=== PATIENT | female | born 1995 | race Caucasian/White ===

== ENCOUNTER 2016-10-07 03:59 | Emergency (ER) | payer MEDICAID ==
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
== END 2016-10-07 04:45 | disposition home or self-care (01) ==
LOC: ER 03:59
DX: S90.31XA Contusion of right foot, initial encounter (principal); W22.8XXA Striking against or struck by other objects, initial encounter
CPT/HCPCS: 99283

== ENCOUNTER 2016-12-15 11:15 | Emergency (ER) | payer MEDICAID ==
--- NOTE | 2016-12-15 11:59 | Emergency Department Record ---
History of Present Illness - General Chief complaint: Extremity Problem Stated complaint: NEEDLE BROKE IN LEG Time Seen by Provider: 12/15/16 11:49 Source: Patient Mode of Arrival: Wheelchair - History of Present Illness Initial comments: The patient was giving herself her daily insulin when the needle malfunctioned and stuck in her skin. She could not pull it out of her skin, so she cut it off to come here. No other complaints. Onset/Timin -: Hour(s) Location: Right, Thigh History of Same: Yes Improves with: Nothing Worsens with: Nothing Associated Symptoms: Denies other symptoms - Related Data Home Medications Medication Instructions Recorded Confirmed Last Taken Insulin Aspart [Novolog Flexpen] 7 unit SC WMEALS 04/21/16 12/15/16 10/06/16 Insulin Glargine,Hum.rec.anlog 20 unit SQ DAILY pen.injctr 06/08/16 12/15/16 [Lantus Solostar] Previous Rx's Medication Instructions Recorded Hydrocodone/Acetaminophen [Montrose 1 tab PO Q6H PRN #3 tab 12/15/16 5mg/325mg] Allergies Allergy/AdvReac Type Severity Reaction Status Date / Time pineapple Allergy rash Unverified 06/16/16 09:32 Travel Screening - Travel/Exposure Within Last 30 Days Have you traveled within the last 30 days?: No Review of Systems Reviewed: No additional complaints except as noted below Constitutional: Reports: As per HPI. Denies: Chills, Fever, Malaise, Night sweats, Weakness, Weight change Eyes: Reports: As per HPI. Denies: Eye discharge, Eye pain, Photophobia, Vision change ENT: Reports: As per HPI. Denies: Congestion, Dental pain, Ear pain, Epistaxis , Hearing loss, Throat pain Respiratory: Reports: As per HPI. Denies: Cough, Dyspnea, Hemoptysis, Stridor, Wheezes Cardiovascular: Reports: As per HPI. Denies: Arrhythmia, Chest pain, Dyspnea on exertion, Edema, Murmurs, Orthopnea, Palpitations, Paroxysmal nocturnal dyspnea, Rheumatic Fever, Syncope Endocrine: Reports: As per HPI. Denies: Fatigue, Heat or cold intolerance, Polydipsia, Polyuria Gastrointestinal: Reports: As per HPI. Denies: Abdominal pain, Constipation, Diarrhea, Hematemesis, Hematochezia, Melena, Nausea, Vomiting Genitourinary: Reports: As per HPI. Denies: Abnormal menses, Discharge, Dyspareunia, Dysuria, Frequency, Hematuria, Incontinence, Retention, Urgency Musculoskeletal: Reports: As per HPI. Denies: Arthralgia, Back pain, Gout, Joint swelling, Myalgia, Neck pain Skin: Reports: As per HPI. Denies: Bruising, Change in color, Change in hair/ nails, Lesions, Pruritus, Rash Neurological: Reports: As per HPI. Denies: Abnormal gait, Confusion, Headache, Numbness, Paresthesias, Seizure, Tingling, Tremors, Vertigo, Weakness Psychiatric: Reports: As per HPI. Denies: Anxiety, Auditory hallucinations, Depression, Homicidal thoughts, Suicidal thoughts, Visual hallucinations Hematological/Lymphatic: Reports: As per HPI. Denies: Anemia, Blood Clots, Easy bleeding, Easy bruising, Swollen glands Past Medical History - SOCIAL HISTORY Smoking Status: Never smoker Alcohol Use: None Drug Use: None - RESPIRATORY Hx Respiratory Disorders: No - CARDIOVASCULAR Hx Cardio Disorders: No - NEURO Hx Neuro Disorders: No - GI Hx GI Disorders: No - Hx Genitourinary Disorders: No - ENDOCRINE Hx Endocrine Disorders: Yes Hx Diabetes: Yes (DM1) - MUSCULOSKELETAL Hx Musculoskeletal Disorders: No - PSYCH Hx Psych Problems: Yes Hx Anxiety: Yes - HEMATOLOGY/ONCOLOGY Hx Hematology/Oncology Disorders: No Family Medical History Any Significant Family History?: Yes Hx Cancer: Grandparents Hx Diabetes: Father *Diabetes Comment: Type 1 Hx Heart Disease: Mother, Grandparents Hx HTN: Mother, Grandparents Physical Exam - General General Appearance: Alert, Oriented x3, Cooperative, No acute distress - Head Head exam: Normal inspection - Eye Eye exam: Normal appearance, PERRL Pupils: Normal accommodation - ENT ENT exam: Normal exam, Mucous membranes moist, Normal external ear exam, Normal orophraynx, TM's normal bilaterally Ear exam: Normal external inspection. negative: External canal tenderness Nasal Exam: Normal inspection. negative: Discharge, Sinus tenderness Mouth exam: Normal external inspection, Tongue normal Teeth exam: Normal inspection. negative: Dental caries Throat exam: Normal inspection. negative: Tonsillar erythema, Tonsillar exudate - Neck Neck exam: Normal inspection, Full ROM. negative: Tenderness - Respiratory Respiratory exam: Normal lung sounds bilaterally. negative: Respiratory distress - Cardiovascular Cardiovascular Exam: Regular rate, Normal rhythm, Normal heart sounds - GI/Abdominal GI/Abdominal exam: Soft, Normal bowel sounds. negative: Tenderness - Rectal Rectal exam: Deferred - exam: Deferred - Extremities Extremities exam: Normal inspection, Full ROM, Normal capillary refill, Other ( anteror mid right thigh with puncture site visible and marked for xray.). negative: Tenderness - Back Back exam: Reports: Normal inspection, Full ROM. Denies: Muscle spasm, Rash noted, Tenderness - Neurological Neurological exam: Alert, Normal gait, Oriented X3, Reflexes normal - Psychiatric Psychiatric exam: Normal affect, Normal mood - Skin Skin exam: Dry, Intact, Normal color, Warm Course Vital Signs 12/15/16 11:24 Temperature 98.4 F Pulse Rate 75 Respiratory 18 Rate Blood Pressure 111/61 Pulse Ox 99 - Reevaluation(s) Reevaluation #1: PROCEDURE: Sterile technique, scrubbed, draped, prepped area on right anterior thigh, 1/2 cc lidocaine with epi locally around wound, opened puncture site to about 1/2 cm size and depth. Probed wound with magnetized tweezers, metal object felt but unable to removed after 15 minutes of repeated attempts. Patient tolerated well. Bleeding controlled 12/15/16 14:34 Reevaluation #2: Dr. Solares paged. Spoke with him scrubbed in to surgery. He states he will remove it under fluoroscopy at [facility] tomorrow and to call his office to get it scheduled. Mom and patient aware and agree. 12/15/16 14:36 12/15/16 14:56 Medical Decision Making - Management Options MDM Management: Additional Work-up Planned (e.g. ADM/Transfer/OP Study) (Dr. Solares consult to remove needle foreign body) - Data Complexity MDM Data: X-Ray Ordered and/or Reviewed (Soft tissue right thigh shows tiny needle foreign body beneath skin surface.) Disposition Disposition: Discharge Clinical Impression: Retained foreign body Disposition: Home, Self-Care Condition: (1) Good Instructions: Soft Tissue Foreign Body (ED) Additional Instructions: Dr. Solares to remove foreign body in your thigh tomorrow at [facility] under fluoroscopy. Keep wound covered. Montrose 3 pills to take 1 every 6 hours if needed, otherwise tylenol or ibuprofen as directed as needed for pain. Prescriptions: Hydrocodone/Acetaminophen [Montrose 5mg/325mg] 1 tab PO Q6H PRN #3 tab PRN Reason: Pain - General
== END 2016-12-15 15:05 | disposition home or self-care (01) ==
LOC: ER 11:15
DX: S70.351A Superficial foreign body, right thigh, initial encounter (principal); E10.9 Type 1 diabetes mellitus without complications; Z79.4 Long term (current) use of insulin; W46.0XXA Contact with hypodermic needle, initial encounter
CPT/HCPCS: 10120; 99283; 99284

== ENCOUNTER 2018-02-13 00:47 | Emergency (ER) | payer MEDICAID ==
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
== END 2018-02-13 03:07 | disposition home or self-care (01) ==
LOC: ER 00:47
DX: S16.1XXA Strain of muscle, fascia and tendon at neck level, initial encounter (principal); R51 Headache; E11.9 Type 2 diabetes mellitus without complications; Z79.4 Long term (current) use of insulin; Z87.891 Personal history of nicotine dependence; V43.61XA Car passenger injured in collision with sport utility vehicle in traffic accident, initial encounter; Y92.410 Unspecified street and highway as the place of occurrence of the external cause
CPT/HCPCS: 70450; 72125; 99283; 99284

== ENCOUNTER 2018-05-09 13:23 | Inpatient (IN) | payer MEDICAID ==
[2018-05-09] MEDS ORDERED: 0.9 % SODIUM CHLORIDE 1,000 ML BAG IV ONE (13:52)
[2018-05-09] MEDS ORDERED: ONDANSETRON HCL IV 4 MG/2 ML VIAL IVP ONE (14:00)
--- NOTE | 2018-05-09 14:00 | Emergency Department Record ---
History of Present Illness - General Chief complaint: Weakness Stated complaint: NOT EATING,WEAK,HARD TO WALK, Time Seen by Provider: 05/09/18 13:26 Source: Patient Mode of Arrival: Wheelchair Limitations: No limitations - History of Present Illness Initial comments: 23 yo female presents not feeling well for about 3-4 days. She has chronic concerns about anxiety and her health. She states she does constantly think about things that could be wrong with her. She then feels overwhelmed to deal with the problems. She has had months of decreased appetite. Months of frequent vaginal bleeding that she is too upset to deal with possible causes. She is worried about her liver and kidneys and whether the kidneys are working. She has not seen her PCP is angelito. She did see her petroleum blending plant operator who ordered routine labs but she has not gotten them yet. She does not work. She did see Miryam Luciano of [facility] once but she has not returned for follow up appointments. PCP is Allie Amaya. Complaint: Generalized weakness Onset/Timin -: Days(s) Location: Generalized Severity: Moderate Quality: Other Improves with: None Worsens with: None Associated Symptoms: Confusion, Nausea/vomiting, Other - [place] Coma Scale Eye Response: (4) Open spontaneously Motor Response: (6) Obeys commands Verbal Response: (5) Oriented Nathan Total: 15 - Related Data Allergies Allergy/AdvReac Type Severity Reaction Status Date / Time pineapple Allergy rash Verified 05/09/18 13:44 Travel Screening - Travel/Exposure Within Last 30 Days Have you traveled within the last 30 days?: No - Travel/Exposure Within Last Year Have you traveled outside the [place] in the last year?: No - Additonal Travel Details Have you been exposed to anyone with a communicable illness?: No - Travel Symptoms Symptom Screening: None Review of Systems Constitutional: Reports: Malaise, Weakness. Denies: Chills, Fever Eyes: Denies: Eye discharge, Eye pain, Vision change ENT: Denies: Congestion, Throat pain Respiratory: Denies: Cough, Dyspnea Cardiovascular: Denies: Chest pain, Dyspnea on exertion, Edema, Palpitations, Syncope Endocrine: Reports: Fatigue Gastrointestinal: Reports: Nausea. Denies: Abdominal pain, Constipation, Diarrhea, Hematemesis, Hematochezia, Melena, Vomiting Genitourinary: Denies: Dysuria Musculoskeletal: Denies: Arthralgia, Back pain, Joint swelling, Myalgia Skin: Denies: Bruising, Change in color, Rash Neurological: Reports: Weakness. Denies: Confusion, Headache, Numbness, Tingling, Tremors, Vertigo Psychiatric: Reports: Anxiety Hematological/Lymphatic: Denies: Blood Clots, Easy bleeding, Easy bruising, Swollen glands Past Medical History - SOCIAL HISTORY Smoking Status: Former smoker - RESPIRATORY Hx Respiratory Disorders: No - CARDIOVASCULAR Hx Cardio Disorders: Yes Hx Palpitations: Yes - NEURO Hx Neuro Disorders: No - GI Hx GI Disorders: No - Hx Genitourinary Disorders: No - ENDOCRINE Hx Endocrine Disorders: Yes Hx Diabetes: Yes (DM1) - MUSCULOSKELETAL Hx Musculoskeletal Disorders: No - PSYCH Hx Psych Problems: Yes Hx Anxiety: Yes - HEMATOLOGY/ONCOLOGY Hx Hematology/Oncology Disorders: No Family Medical History Any Significant Family History?: No Hx Cancer: Grandparents Hx Diabetes: Father *Diabetes Comment: Type 1 Hx Heart Disease: Mother, Grandparents Hx HTN: Mother, Grandparents Physical Exam - General General Appearance: Alert, Oriented x3, Cooperative, No acute distress Limitations: No limitations - Head Head exam: Normal inspection - Eye Eye exam: Normal appearance, PERRL. negative: Conjunctival injection, Scleral icterus - ENT ENT exam: Normal exam, Mucous membranes moist, Normal orophraynx. negative: Mucous membranes dry Ear exam: Normal external inspection Nasal Exam: Normal inspection Mouth exam: Normal external inspection - Neck Neck exam: Normal inspection, Full ROM. negative: Lymphadenopathy, Tenderness - Respiratory Respiratory exam: Normal lung sounds bilaterally. negative: Respiratory distress - Cardiovascular Cardiovascular Exam: Regular rate, Normal rhythm, Normal heart sounds - GI/Abdominal GI/Abdominal exam: Soft. negative: Tenderness - Rectal Rectal exam: Deferred - exam: Deferred - Extremities Extremities exam: Normal inspection. negative: Full ROM, Pedal edema, Tenderness - Back Back exam: Denies: CVA tenderness (R), CVA tenderness (L) - Neurological Neurological exam: Alert, Oriented X3. negative: CN II-XII intact, Motor sensory deficit - Psychiatric Psychiatric exam: Anxious. negative: Agitated, Flat affect, Homicidal ideation , Manic, Suicidal ideation - Skin Skin exam: Dry, Intact, Normal color, Warm Course Vital Signs 05/09/18 13:36 Temperature 97.5 F L Pulse Rate 102 H Respiratory 20 Rate Blood Pressure 106/67 Pulse Ox 100 - Reevaluation(s) Reevaluation #1: The EMR was reviewed The patient has seen Miryam Luciano and Allie Amaya in the past Miryam and Allie were both contacted. The symptoms the patient presents with are well known to them. The symptoms do extend back many months. The patient has not been willing to go to appointments for either provider. The patient states she "doesn't want to deal with it all". She is afraid of what it could be causing her to feel this way. 05/09/18 14:16 05/09/18 15:12 The labs were reviewed The patient has ketosis with positive acetone, VpH 7.21, HCO3 of 12 and AG of 33. Glucose is 109 and 135. Likely a starvation ketosis based on history. Her weight today is 146 pounds down from prior of about 160 beginning of the year. I SW the patient's PCP Allie Amaya and Dr Zarco of the admitting service to admit, consult behavioral health, nutrition, hydrate with dextrose added and recheck labs. One MVI with Thiamine ordered as well. 05/09/18 15:22 Vitals stable for admission 05/09/18 15:51 HCG is negative TSh is 0.5 Free T4 is 1.17 (normal) Medical Decision Making - Lab Data Result diagrams: 05/09/18 14:20 05/09/18 14:20 Disposition Disposition: Admit Clinical Impression: Anxiety, Dehydration, Ketosis Disposition: Still a Patient at [facility] Decision to Admit: Admit from ER Decision to Admit Date: 05/09/18 Decision to Admit Time: 15:16 Condition: (2) Stable Time of Disposition: 15:16 Quality - Quality Measures Quality Measures: N/A - Blood Pressure Screening Does Patient Have Any of the Following: No Blood Pressure Classification: Normal BP Reading Systolic Measurement: 97 Diastolic Measurement: 55 Screening for High Blood Pressure: < Normal BP, F/U Not Required > [[id number]]
[2018-05-09 14:31] LABS: HEMATOCRIT 43.7 % (35.0-47.0); HEMOGLOBIN 14.3 gm/dl (11.6-16.0); MEAN CELL VOLUME 86.5 fl (81-97); MEAN CORPUSCULAR HEMOGLOBIN 28.3 pg (27-33); MEAN CORPUSCULAR HGB CONC 32.7 g/dl (32-36); MEAN PLATELET VOLUME 11.3 fl (7.4-10.4); PLATELET COUNT 364 K/uL (130-400); RED BLOOD COUNT 5.05 M/uL (3.80-5.40); RED CELL DISTRIBUTION WIDTH 13.1 % (11.5-14.5); WHITE BLOOD COUNT W/O DIFF 9.9 K/uL (4.2-12.2)
[2018-05-09 14:44] LABS: BLOOD UREA NITROGEN 15 mg/dL (6-20); CREATININE 0.8 mg/dL (0.5-0.9); EST GLOMERULAR FILTRATION RATE > 60 mL/min
[2018-05-09 14:45] LABS: TOTAL PROTEIN 7.9 g/dL (6.6-8.7)
[2018-05-09 14:47] LABS: GLUCOSE,RANDOM 135 mg/dL (74-109)
[2018-05-09 14:50] LABS: ALB/GLOB RATIO 1.5 (1.1-1.8); ALBUMIN 4.8 g/dL (4.0-5.0); ALKALINE PHOSPHATASE 66 U/L (35-104); ALT/SGPT 6 U/L (<33); AST/SGOT 12 U/L (10.0-35.0)
[2018-05-09 14:50] LABS: URINE APPEARANCE CLEAR; URINE BILIRUBIN NEGATIVE (NEGATIVE); URINE BLOOD LARGE (NEGATIVE); URINE COLOR YELLOW; URINE GLUCOSE (UA) NEGATIVE (NEGATIVE); URINE LEUKOCYTE ESTERASE NEGATIVE (NEGATIVE); URINE NITRITE NEGATIVE (NEGATIVE); URINE UROBILINOGEN 0.2 E.U./dL (0.20 - 1.00)
[2018-05-09 14:52] LABS: ACETONE,SERUM POSITIVE (NEGATIVE)
[2018-05-09 14:54] LABS: URINE KETONE 80 mg/dL (NEGATIVE)
[2018-05-09 15:00] LABS: THYROID STIMULATING HORMONE 0.53 uIU/mL (0.270-4.20)
[2018-05-09 15:00] LABS: URINE BACTERIA 2+; URINE EPITHELIAL CELLS >50 (FEW); URINE HYALINE CAST 0 - 5 /lpf; URINE RBC 36 - 50 (NONE SEEN); URINE WBC 0 - 2 (0-2/hpf)
[2018-05-09] MEDS ORDERED: DEXTROSE 5 % AND 0.9 % NACL 1,000 ML IV PRN ×2 (15:07→16:20)
[2018-05-09] MEDS ORDERED: MVI, ADULT NO.4 WITH VIT K 10 ML, THIAMINE HCL IV 100 MG in 0.9 % SODIUM CHLORIDE 1000M... IV SCH ×3 (15:15)
[2018-05-09] MEDS ORDERED: ACETAMINOPHEN 325 MG TAB PO PRN (16:20)
[2018-05-09] MEDS: NOVOLOG FLEXPEN (INSULIN ASPART) 100 UNITS/ML SQ SCH (18:16)
[2018-05-09] MEDS ORDERED: NOVOLOG FLEXPEN (INSULIN ASPART) 100 UNITS/ML SQ ONE (23:15)
[2018-05-09] MEDS: 0.9 % SODIUM CHLORIDE 1000ML 1,000 ML IV PRN (23:32)
[2018-05-10 07:01] LABS: BLOOD UREA NITROGEN 5 mg/dL (6-20); CREATININE 0.6 mg/dL (0.5-0.9); EST GLOMERULAR FILTRATION RATE > 60 mL/min; GLUCOSE,RANDOM 243 mg/dL (74-109)
[2018-05-10 07:32] LABS: ACETONE,SERUM POSITIVE (NEGATIVE)
[2018-05-10] MEDS: 0.9 % SODIUM CHLORIDE 1000ML 1,000 ML IV PRN ×2 (08:15→16:47)
[2018-05-10] MEDS: NOVOLOG FLEXPEN (INSULIN ASPART) 100 UNITS/ML SQ SCH ×3 (08:16→17:34)
--- NOTE | 2018-05-10 09:44 | Physician Progress Note ---
Subjective - Date Date of Physician Progress Note: 05/10/18 - Subjective Subjective Comment: 23 year old female presented to ED yesterday with complaints of weakness after not eating for 4 days. Patient has type 1 diabetes and an extensive history of anxiety. Patient states she was not eating due to worries about doing something wrong and wanting to eat the right things. Patient was admitted with starvation acidosis, diabetes type 1, and anxiety. Lab work completed this morning reveals continuing acidosis. Venous pH 7.24, anion gap 22, blood glucose 243, and positive acetone. Patient has started eating meals today, is covered with Novolog sliding scale and 5 units with eat meal. Patient continues to receive 0.9% NS @125ml/hr. Dive Superintendent and behavioral health have been consulted and plan to meet with patient today. Will restart Basaglar 24 units qhs today. Patient reports weakness has been improving. Voiced frustration over insulin dosing, as it is not consistent with her home regimen. Will continue to cover patient with sliding scale Novolog and recheck labs in the morning to see if acidosis has resolved. Mom at bedside, mom and patient agreeable to plan. Objective - Multidiciplinary Team Multidiciplinary Team: Social Work - Vital Signs Vital Signs: Vital Signs - Last 24 Hrs Temp Pulse Pulse Resp BP BP Pulse Ox 05/10/18 07:55 98.5 F 95 H 18 90/42 100 05/10/18 00:00 98.2 F 120 H 18 118/53 100 05/09/18 21:00 16 05/09/18 18:35 94 H 18 05/09/18 16:20 94 H 18 111/56 100 05/09/18 16:12 97.5 F L 60 20 97/55 100 05/09/18 13:36 97.5 F L 102 H 20 106/67 100 - General General Appearance: Alert, Oriented x3, Cooperative, No acute distress Limitations: No limitations - Head Head exam: Normal inspection - Eye Eye exam: Normal appearance, PERRL. negative: Conjunctival injection, Scleral icterus - ENT ENT exam: Normal exam, Mucous membranes moist, Normal orophraynx. negative: Mucous membranes dry Ear exam: Normal external inspection Nasal Exam: Normal inspection Mouth exam: Normal external inspection - Neck Neck exam: Normal inspection, Full ROM. negative: Lymphadenopathy, Tenderness - Respiratory Respiratory exam: Normal lung sounds bilaterally. negative: Respiratory distress - Cardiovascular Cardiovascular Exam: Regular rate, Normal rhythm, Normal heart sounds - GI/Abdominal GI/Abdominal exam: Soft, Normal bowel sounds. negative: Tenderness - Rectal Rectal exam: Deferred - exam: Deferred - Extremities Extremities exam: Normal inspection. negative: Full ROM, Pedal edema, Tenderness - Back Back exam: Denies: CVA tenderness (R), CVA tenderness (L) - Neurological Neurological exam: Alert, Oriented X3. negative: CN II-XII intact, Motor sensory deficit - Psychiatric Psychiatric exam: Anxious. negative: Agitated, Flat affect, Homicidal ideation , Manic, Suicidal ideation - Skin Skin exam: Dry, Intact, Normal color, Warm Assessment and Plan - Assessment and Plan (1) Acidosis Current Visit: Yes Status: Acute Base Code: E87.2 - ACIDOSIS Comment: 05/10: Patient presented to ED yesterday with acidosis secondary to starvation x 4 days with a history of type 1 diabetes. Patient stated she was not eating due to anxiety, worrying about eating the right things, and not wanting to make her diabetes worse. -Venous pH today 7.24, anion gap 22, glucose 243, acetone positive, urine positive for ketones -Will continue 0.9% NS @ 125ml/hr -Patient encouraged to resume normal diet -Novolog 5 units TID with scale coverage at meals -Will restart Basaglar 24 units qhs today -Dive Superintendent consult -Will recheck labs tomorrow (2) Type 1 diabetes Current Visit: Yes Status: Acute Base Code: E10.9 - TYPE 1 DIABETES MELLITUS WITHOUT COMPLICATIONS Comment: 05/10/18: History of type 1 diabetes since age 12. Patient uses Novolog and Basaglar at home. Is managed by an brick and block mason at [facility]. Patient reports home readings of "okay" recently. -Accucheck ac, hs -Novolog 5 units TID with scale coverage -Basaglar 24 units qhs -Normal saline 0.9% @ 125ml/hr -Dive Superintendent consult -Encouraged to resume normal diet -Will recheck labs in the morning (3) Anxiety Current Visit: Yes Status: Acute Base Code: F41.9 - ANXIETY DISORDER, UNSPECIFIED Comment: 05/10/18: Patient admits history of anxiety, has seen services at [facility] in the past with poor attendance. Patient denies any current medications for anxiety - has been consulted, they are planning to meet with patient today to re- establish care (4) DVT prophylaxis Current Visit: Yes Status: Acute Base Code: [id number] - Comment: 05/10/18: moderate risk due to hospitalization and decreased mobility -Lovenox 40mg SQ qd (5) Full code status Current Visit: Yes Status: Acute Base Code: Z78.9 - OTHER SPECIFIED HEALTH STATUS Comment: 05/10/18: Patient is a full code this admission Results - Labs Result Diagrams: 05/09/18 14:20 05/10/18 06:35 Labs Last 24 Hours: Laboratory Results - last 24 hr 05/09/18 05/09/18 05/09/18 13:42 14:20 14:20 WBC 9.9 RBC 5.05 Hgb 14.3 Hct 43.7 MCV 86.5 MCH 28.3 MCHC 32.7 RDW 13.1 Plt Count 364 MPV 11.3 H Neutrophils % 89.0 H Eosinophils % Not Reportable Basophils % Not Reportable Lymphocytes 8.0 L Monocytes 3.0 VBG pH 7.21 L Sodium 137 Potassium 4.1 Chloride 92 L Carbon Dioxide 12.0 L Anion Gap 33.0 H BUN 15 Creatinine 0.8 Estimated GFR > 60 POC Glucose 109 Random Glucose 135 H Calcium 9.1 Magnesium 1.7 Total Bilirubin 0.90 AST 12 ALT 6 Alkaline Phosphatase 66 Total Protein 7.9 Albumin 4.8 Globulin 3.1 Albumin/Globulin Ratio 1.5 Triglycerides Cholesterol LDL Cholesterol Measurd VLDL Cholesterol HDL Cholesterol TSH Free T4 Serum HCG, Qual Urine Color Urine Appearance Urine pH Ur Specific [place] Urine Protein Urine Glucose (UA) Urine Ketones Urine Blood Urine Nitrite Urine Bilirubin Urine Urobilinogen Ur Leukocyte Esterase Urine RBC Urine WBC Ur Epithelial Cells Urine Bacteria Hyaline Casts Acetone, Qual Positive 05/09/18 05/09/18 05/09/18 14:20 14:20 14:48 WBC RBC Hgb Hct MCV MCH MCHC RDW Plt Count MPV Neutrophils % Eosinophils % Basophils % Lymphocytes Monocytes VBG pH Sodium Potassium Chloride Carbon Dioxide Anion Gap BUN Creatinine Estimated GFR POC Glucose Random Glucose Calcium Magnesium Total Bilirubin AST ALT Alkaline Phosphatase Total Protein Albumin Globulin Albumin/Globulin Ratio Triglycerides 99 Cholesterol 167 LDL Cholesterol Measurd 89.0 VLDL Cholesterol 19 HDL Cholesterol 63 H TSH 0.53 Free T4 1.17 Serum HCG, Qual Negative Urine Color Yellow Urine Appearance Clear Urine pH 6.0 Ur Specific L[place] >= 1.030 Urine Protein 100 mg/dl H Urine Glucose (UA) Negative Urine Ketones 80 mg/dl H Urine Blood Large H Urine Nitrite Negative Urine Bilirubin Negative Urine Urobilinogen 0.2 Ur Leukocyte Esterase Negative Urine RBC 36 - 50 Urine WBC 0 - 2 Ur Epithelial Cells >50 Urine Bacteria 2+ Hyaline Casts 0 - 5 Acetone, Qual 05/09/18 05/10/18 05/10/18 22:32 02:16 06:35 WBC RBC Hgb Hct MCV MCH MCHC RDW Plt Count MPV Neutrophils % Eosinophils % Basophils % Lymphocytes Monocytes VBG pH 7.24 L Sodium 137 Potassium 3.8 Chloride 102 Carbon Dioxide 13.0 L Anion Gap 22.0 H BUN 5 L Creatinine 0.6 Estimated GFR > 60 POC Glucose 391 H 346 H Random Glucose 243 H Calcium 8.1 L Magnesium Total Bilirubin AST ALT Alkaline Phosphatase Total Protein Albumin Globulin Albumin/Globulin Ratio Triglycerides Cholesterol LDL Cholesterol Measurd VLDL Cholesterol HDL Cholesterol TSH Free T4 Serum HCG, Qual Urine Color Urine Appearance Urine pH Ur Specific Largo Urine Protein Urine Glucose (UA) Urine Ketones Urine Blood Urine Nitrite Urine Bilirubin Urine Urobilinogen Ur Leukocyte Esterase Urine RBC Urine WBC Ur Epithelial Cells Urine Bacteria Hyaline Casts Acetone, Qual Positive DVT/PE Assessment - Risk for VTE Risk for VTE: Yes Risk Level: Low Risk Assessment Date: 05/09/18 Risk Assessment Time: 12:00 VTE Orders Placed or Will Be Placed: Yes - Active Medicaitons Current Medications: Current Medications Acetaminophen (Tylenol 325mg) 650 mg PO Q6H PRN PRN Reason: PAIN - MILD(1-4)/FEVER Enoxaparin Sodium (Lovenox) 40 mg SQ DAILY [facility] Dextrose/Sodium Chloride () 1,000 mls @ 125 mls/hr IV .Q8H PRN PRN Reason: LARGE VOLUME IV Sodium Chloride () 1,000 mls @ 125 mls/hr IV .Q8H PRN PRN Reason: LARGE VOLUME IV Last Admin: 05/10/18 08:15 Dose: 125 mls/hr Insulin Aspart (Novolog Flexpen) 5 unit SQ TIDINS TAVON; Protocol Last Admin: 05/10/18 08:16 Dose: 10 unit AMI Plan - Labs Result Diagrams: 05/09/18 14:20 05/10/18 06:35
[2018-05-10] MEDS ORDERED: ENOXAPARIN 40 MG/0.4 ML SYR SQ SCH (10:00)
--- NOTE | 2018-05-10 12:30 | History and Physical Report ---
DATE: 05/09/2018 CHIEF COMPLAINT: Not eating or drinking, diabetic, weakness. HISTORY OF PRESENT ILLNESS: This 23-year-old female states that she was not eating or drinking for the last 3-4 days. She could not give me a real reason why. She might have an eating disorder. She is weak. She is also very anxious. She came into the ER for evaluation with her mother. She has been a diabetic for at least 6-8 years. She denies vomiting or diarrhea. She sees the issue clerk at [facility], endocrinology Dr. Manzanares. She also sees TARP REPAIRER Fe Sosa but is pretty noncompliant according to Dr. Lincoln who admitted her through the emergency department. He gave her IV fluids and labs were unremarkable except the venous pH was 7.2. Acetone was positive at 1 to 8. Her train of thought was difficult to follow. It was hard to listen to her history. PAST MEDICAL HISTORY: Diabetes mellitus type 1, anxiety, eating disorder. PAST SURGICAL HISTORY: Injury to the face with a dog bite requiring surgery and right upper thigh removal of an insulin needle in her thigh. MEDICATIONS: On admission: 1. She was very difficult to get her diabetic insulin medications from her. It sounds like she uses 22 units of Basaglar and she uses NovoLog as her short- acting insulin. She has a very elaborate carbohydrate counting scale and it is very confusing. To simplify things, I recommended that we go with 5 units of insulin NovoLog per meal and then 1 unit for every 20 units over 140. She says that is what they wrote down at the diabetic clinic after I said that. I am not sure exactly what she is taking but that is what we will start with. We will hold the Basaglar until she is eating. We are going to give her a tray tonight at dinnertime to see how she does. 2. Vitamin D2, 1 capsule a week. ALLERGIES: PINEAPPLE. FAMILY/PSYCHOSOCIAL HISTORY: Unremarkable. REVIEW OF SYSTEMS: HEENT: No upper respiratory infection symptoms, cough, cold, or congestion. Cardiovascular: No chest pain, palpitations, or arrhythmia. Respiratory: No cough, cold, or congestion. Gastrointestinal: She is not vomiting. She is not eating. No diarrhea. Genitourinary: No dysuria, hematuria, frequency, or burning on urination. Musculoskeletal: Moving all 4 extremities. No joint abnormalities. Neurological: She has anxiety disorder and possible eating disorder. No paralysis, paresthesias, balance problems. TRANSFER MACHINE OPERATOR: Unremarkable. 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 Endocrine: She has diabetes type 1. Integument: No rash, ulcers, change in moles, or yellow skin. PHYSICAL EXAMINATION: VITALS: Height 5 feet 3 inches, weight 153 pounds. Temperature 97.5, blood pressure 111/56, pulse 94, respiratory rate 18, pulse ox 100% on room air. HEENT: Pupils are equal, round, and reactive to light and accommodation. Extraocular muscles are intact. Throat is clear. That is still dry but not as bad as what the mom said. She is looking better. Nose is clear. Tympanic membranes are ibarra. Skin color is looking better. NECK: Supple. No jugular venous distention. No hepatojugular reflux. No carotid bruits. Thyroid is smooth. CARDIOVASCULAR: Regular rate and rhythm without murmurs, clicks, rubs, or gallops. RESPIRATORY: Clear to auscultation and percussion. ABDOMEN: Soft, nontender. No hepatosplenomegaly, no masses, no tenderness. Bowel sounds are active. EXTREMITIES: No pitting edema. No cyanosis, no clubbing. Full range of motion. Peripheral pulses are good. BREASTS: Exam deferred. GYNECOLOGICAL: Exam deferred. RECTAL: Exam deferred. NEUROLOGIC: Cranial nerves II-XII intact. No gross defects. Sensation normal, strength normal. Deep tendon reflexes equal bilaterally with Babinski negative. MENTAL STATUS: Alert and oriented x3. IMPRESSION: 1. Starvation acidosis. 2. Diabetes mellitus type 1. 3. Anxiety. 4. Eating disorder. INPATIENT CERTIFICATION: Admit to inpatient care. Based on my medical assessment , after consideration of patient's risk factors, age, comorbidities, and patient 's presenting symptoms and acuity, I expect that this patient will remain in the hospital greater than or equal to 2 midnights and that the services needed warrant inpatient care because of diabetes mellitus type 1, ketoacidosis, and an eating disorder. Estimated length of stay is 3 days. The patient may reasonably be expected to be discharged or transferred to a hospital within 96 hours after admission to [facility]. I certify that my determination is in accordance with my understanding of Medicare requirements for reasonable and necessary inpatient services. KAIN
[2018-05-10] MEDS ORDERED: BASAGLAR INSULIN MC SCH (22:00)
[2018-05-11] MEDS: 0.9 % SODIUM CHLORIDE 1000ML 1,000 ML IV PRN (02:00)
[2018-05-11 07:19] LABS: ALB/GLOB RATIO 1.6 (1.1-1.8); ALBUMIN 3.4 g/dL (4.0-5.0); ALKALINE PHOSPHATASE 46 U/L (35-104); ALT/SGPT < 5 U/L (<33); AST/SGOT 8 U/L (10.0-35.0); BLOOD UREA NITROGEN 2 mg/dL (6-20); CREATININE 0.5 mg/dL (0.5-0.9); EST GLOMERULAR FILTRATION RATE > 60 mL/min; GLUCOSE,RANDOM 81 mg/dL (74-109); TOTAL PROTEIN 5.5 g/dL (6.6-8.7)
[2018-05-11] MEDS ORDERED: POTASSIUM CHLORIDE 20 MEQ TABLET PO ONE (08:15)
[2018-05-11] MEDS: NOVOLOG FLEXPEN (INSULIN ASPART) 100 UNITS/ML SQ SCH ×2 (08:33→11:57)
--- NOTE | 2018-05-11 12:17 | Discharge Summary ---
Providers Discharge Summary Date: 05/11/18 Date of admission: 05/09/18 15:54 Expected Date of Discharge: 05/11/18 Attending physician: Abiodun Zarco Primary care physician: Fe Sosa N.P. Consults: Consult Orders 05/09/18 16:20 Consult NOW Consulting Provider: Miryam Luciano Physician Instructions: Reason For Exam: anxiety Physical Exam - Vital Signs Vital Signs: Vital Signs - Last 24 Hrs Temp Pulse Resp BP BP BP Pulse Ox 05/11/18 07:59 98.9 F 79 12 100/65 100 05/11/18 00:00 98.0 F 78 16 103/64 100 05/10/18 16:00 98.3 F 90 18 115/75 98 05/10/18 12:43 98.5 F 98/42 - General General Appearance: Alert, Oriented x3, Cooperative, No acute distress Limitations: No limitations - Head Head exam: Normal inspection - Eye Eye exam: Normal appearance, PERRL. negative: Conjunctival injection, Scleral icterus - ENT ENT exam: Normal exam, Mucous membranes moist, Normal orophraynx. negative: Mucous membranes dry Ear exam: Normal external inspection Nasal Exam: Normal inspection Mouth exam: Normal external inspection - Neck Neck exam: Normal inspection, Full ROM. negative: Lymphadenopathy, Tenderness - Respiratory Respiratory exam: Normal lung sounds bilaterally. negative: Respiratory distress - Cardiovascular Cardiovascular Exam: Regular rate, Normal rhythm, Normal heart sounds Peripheral Pulses: 2+: Radial (R), Radial (L) - GI/Abdominal GI/Abdominal exam: Soft, Normal bowel sounds. negative: Tenderness - Rectal Rectal exam: Deferred - exam: Deferred - Extremities Extremities exam: Normal inspection. negative: Full ROM, Pedal edema, Tenderness - Back Back exam: Denies: CVA tenderness (R), CVA tenderness (L) - Neurological Neurological exam: Alert, Oriented X3. negative: CN II-XII intact, Motor sensory deficit - Psychiatric Psychiatric exam: Anxious. negative: Agitated, Flat affect, Homicidal ideation , Manic, Suicidal ideation - Skin Skin exam: Dry, Intact, Normal color, Warm Hospitalization - Hospitalization Admission Diagnosis: Dehydration, Ketosis, weight loss, anxiety - Problem List/Discharge Diagnosis (1) Acidosis Current Visit: Yes Status: Acute Base Code: E87.2 - ACIDOSIS Comment: 05/11: Patient presented to ED yesterday with acidosis secondary to starvation x 4 days with a history of type 1 diabetes. Patient stated she was not eating due to anxiety, worrying about eating the right things, and not wanting to make her diabetes worse. -Venous pH today 7.33, anion gap 12, glucose 141 -Will continue 0.9% NS @ 125ml/hr -Patient has been eating regular meals for the past 24 hours -Novolog 5 units TID with scale coverage at meals -Basaglar 24 units qhs -Real Estate Transaction Manager consult (2) Type 1 diabetes Current Visit: Yes Status: Acute Base Code: E10.9 - TYPE 1 DIABETES MELLITUS WITHOUT COMPLICATIONS Comment: 05/11/18: History of type 1 diabetes since age 12. Patient uses Novolog and Basaglar at home. Is managed by an warp spooler at [facility]. Patient reports home readings of "okay" recently. -Accucheck ac, hs -Novolog 5 units TID with scale coverage -Basaglar 24 units qhs -Real Estate Transaction Manager consult -Patient resuming normal diet -Spent extensive time discussing the importance of regular meals in order to regulate blood sugar. Patient denied questions on home sliding scale she uses for insulin dosing. (3) Anxiety Current Visit: Yes Status: Acute Base Code: F41.9 - ANXIETY DISORDER, UNSPECIFIED Comment: 05/11/18: Patient admits history of anxiety, has seen services at [facility] in the past with poor attendance. Patient denies any current medications for anxiety - has been consulted, Miryam met with patient today to re-establish care -Next appointment scheduled for Wednesday. (4) Vaginal bleeding between periods Current Visit: Yes Status: Acute Base Code: N92.3 - OVULATION BLEEDING Comment: 05/11/18: Patient reports spotting between her periods. States she is concerned something is wrong. -Denies passing clots, does not require a pad or tampon. Reports small amount of light pink blood on tissue after using the bathroom -Hgb 14.3. -Patient to follow-up with PCP for further evaluation. (5) DVT prophylaxis Current Visit: Yes Status: Acute Base Code: [id number] - Comment: 05/11/18: moderate risk due to hospitalization and decreased mobility -No need to continue Lovenox at home as patient will resume normal diet. (6) Full code status Current Visit: Yes Status: Acute Base Code: Z78.9 - OTHER SPECIFIED HEALTH STATUS Comment: 05/11/18: Patient is a full code this admission - Hospitalization Course Disposition: Home, Self-Care Hospital Course: 05/11/18: Patient alert and oriented x 4, resting comfortably in bed. Mom at bedside. Blood sugars are better controlled at this time. Patient has met with the nursing informatics analyst and received printed information on specific dietary changes the patient wishes to make. Patient encouraged to maintain a healthy dietary intake to help regulate blood sugars. Patient has met with Miryam from with next appointment scheduled for Wednesday. Patient to see Fe Sosa NP on Wednesday as well for follow-up. Patient concerned with irregular vaginal bleeding. Reassured patient that she is not having hemorrhagic bleeding and that it is not of immediate danger. Hemoglobin 14.3. Patient encouraged to follow-up with PCP for further evaluation of this. Potassium 3.0 today, likely dilutional and due to poor dietary intake. Replaced with 40mEq PO. Patient to take 10mEq daily upon discharge while she is working to regulate her diet. Patient to have BMP rechecked prior to appointment on Wednesday with Fe to further discuss need for supplemental potassium at that time. Abnormal Labs: Abnormal Lab Results 05/09/18 05/09/18 05/09/18 Range/Units 14:20 14:20 14:20 MPV 11.3 H (7.4-10.4) fl Neutrophils % 89.0 H (47-80) % Lymphocytes 8.0 L (16-45) % VBG pH 7.21 L (7.33-7.43) Potassium (3.4-4.5) mmol/L Chloride 92 L (98-107) mmol/L Carbon Dioxide 12.0 L (22-29) mmol/L Anion Gap 33.0 H (7-16) BUN (6-20) mg/dL POC Glucose (70-110) mg/dL Random Glucose 135 H (74-109) mg/dL Calcium (8.6-10.0) mg/dL AST (10.0-35.0) U/L Total Protein (6.6-8.7) g/dL Albumin (4.0-5.0) g/dL HDL Cholesterol 63 H (40-60) mg/dL Urine Protein (NEGATIVE) Urine Ketones (NEGATIVE) Urine Blood (NEGATIVE) 05/09/18 05/09/18 05/10/18 Range/Units 14:48 22:32 02:16 MPV (7.4-10.4) fl Neutrophils % (47-80) % Lymphocytes (16-45) % VBG pH (7.33-7.43) Potassium (3.4-4.5) mmol/L Chloride (98-107) mmol/L Carbon Dioxide (22-29) mmol/L Anion Gap (7-16) BUN (6-20) mg/dL POC Glucose 391 H 346 H (70-110) mg/dL Random Glucose (74-109) mg/dL Calcium (8.6-10.0) mg/dL AST (10.0-35.0) U/L Total Protein (6.6-8.7) g/dL Albumin (4.0-5.0) g/dL HDL Cholesterol (40-60) mg/dL Urine Protein 100 mg/dl H (NEGATIVE) Urine Ketones 80 mg/dl H (NEGATIVE) Urine Blood Large H (NEGATIVE) 05/10/18 05/10/18 05/10/18 Range/Units 06:35 11:47 17:00 MPV (7.4-10.4) fl Neutrophils % (47-80) % Lymphocytes (16-45) % VBG pH 7.24 L (7.33-7.43) Potassium (3.4-4.5) mmol/L Chloride (98-107) mmol/L Carbon Dioxide 13.0 L (22-29) mmol/L Anion Gap 22.0 H (7-16) BUN 5 L (6-20) mg/dL POC Glucose 427 H 142 H (70-110) mg/dL Random Glucose 243 H (74-109) mg/dL Calcium 8.1 L (8.6-10.0) mg/dL AST (10.0-35.0) U/L Total Protein (6.6-8.7) g/dL Albumin (4.0-5.0) g/dL HDL Cholesterol (40-60) mg/dL Urine Protein (NEGATIVE) Urine Ketones (NEGATIVE) Urine Blood (NEGATIVE) 05/10/18 05/11/18 05/11/18 Range/Units 22:17 06:35 11:45 MPV (7.4-10.4) fl Neutrophils % (47-80) % Lymphocytes (16-45) % VBG pH (7.33-7.43) Potassium 3.0 L (3.4-4.5) mmol/L Chloride (98-107) mmol/L Carbon Dioxide (22-29) mmol/L Anion Gap (7-16) BUN 2 L (6-20) mg/dL POC Glucose 185 H 164 H (70-110) mg/dL Random Glucose (74-109) mg/dL Calcium 7.8 L (8.6-10.0) mg/dL AST 8 L (10.0-35.0) U/L Total Protein 5.5 L (6.6-8.7) g/dL Albumin 3.4 L (4.0-5.0) g/dL HDL Cholesterol (40-60) mg/dL Urine Protein (NEGATIVE) Urine Ketones (NEGATIVE) Urine Blood (NEGATIVE) Condition at Discharge: (2) Stable VTE Discharge VTE Reason For No Overlap Therapy: Not Indicated Discharge Medications - Discharge Medications Prescriptions: Potassium Chloride [Klor-Con 10] 10 meq PO DAILY #7 tablet.er Home Medications: Ambulatory Orders Insulin Aspart [Novolog Flexpen] 7 unit SC WMEALS 04/21/16 [Last Taken 10/06/16] Insulin Glargine,Hum.rec.anlog [Basaglar Kwikpen U-100] 22 unit SQ DAILY pen.injctr 12/02/17 [Last Taken Unknown] Potassium Chloride [Klor-Con 10] 10 meq PO DAILY #7 tablet.er 05/11/18 [Last Taken Unknown] Discharge Plan - Discharge Instructions Activity at Discharge: Resume Usual Activities As Tolerated Diet at Discharge: Advance to Usual Diet Additional Instructions: Appointment with Miryam Luciano at [facility] Mental/Behioral Health WednesdayMay 16 at 11AM. Appointment with Fe Sosa at [facility] Family Practice: WednesdayMay 16 at 12:20PM. For transportation needs, please call [facility] [employer] Customer Service 48hours before appointment for transportation assistance. [phone] Take the potassium pill daily, starting tomorrow. Have your labs drawn before your appointment with Fe to further discuss need for continued potassium supplementation Resume your normal insulin scale Work on eating 3 meals per day to help regulate your blood sugar Quality Measures - Quality Measures Quality Measures: Documentation of Current Medications in Medical Record, Screening for High Blood Pressure and F/U Documented - Current Medications Quality Measure: Measure #130: Documentation of Current Medications Documentation of Current Medications: <Current Medications Documented/Reviewed> [G8427] - Blood Pressure Screening Quality Measure: Screening for High Blood Pressure and Follow-Up Documented Does Patient Have Any of the Following: No Blood Pressure Classification: Normal BP Reading Systolic Measurement: 98 Diastolic Measurement: 42 Screening for High Blood Pressure: < Normal BP, F/U Not Required > [G8783] - Elder Abuse Suspicion Index EASI Reference Information: Sebas GRECO, Mc C, Patricia D, Tracey Mahoney.Development and validation of a tool to assist physicians identification of elder abuse: The Elder Abuse Suspicion Index (EASI ). Journal of Elder Abuse and Neglect, 2008; 20 (3): 276-300.
[2018-05-11 16:00] LABS: ACETONE,SERUM NEGATIVE (NEGATIVE)
== END 2018-05-11 15:45 | disposition home or self-care (01) | DRG 641 ==
LOC: ER 13:23 → MEDSURG 15:54
PROVIDERS: ADMIT Emergency Medicine; ATTEND Emergency Medicine
DX: E86.0 Dehydration (principal); E87.2 Acidosis; F50.9 Eating disorder, unspecified; R63.4 Abnormal weight loss; E10.9 Type 1 diabetes mellitus without complications; N92.3 Ovulation bleeding; E88.89 Other specified metabolic disorders; F41.9 Anxiety disorder, unspecified; Z87.891 Personal history of nicotine dependence
CPT/HCPCS: 36416; 80048; 80053; 80061; 81001; 82009; 82800; 82948; 83735; 84439; 84443; 84703; 85027; 99223; 99233; 99239; J1650; J3411; J7030; J7042

== ENCOUNTER 2018-05-21 21:54 | Emergency (ER) | payer MEDICAID ==
[2018-05-21 22:50] LABS: URINE APPEARANCE CLEAR; URINE BILIRUBIN NEGATIVE (NEGATIVE); URINE BLOOD LARGE (NEGATIVE); URINE COLOR YELLOW; URINE GLUCOSE (UA) NEGATIVE (NEGATIVE); URINE LEUKOCYTE ESTERASE NEGATIVE (NEGATIVE); URINE NITRITE NEGATIVE (NEGATIVE); URINE PROTEIN NEGATIVE (NEGATIVE); URINE UROBILINOGEN 0.2 E.U./dL (0.20 - 1.00)
[2018-05-21 22:53] LABS: URINE KETONE 80 mg/dL (NEGATIVE)
[2018-05-21 23:00] LABS: URINE EPITHELIAL CELLS 0 - 2 (FEW); URINE RBC 0 - 2 (NONE SEEN); URINE WBC NONE SEEN (0-2/hpf)
--- NOTE | 2018-05-21 23:20 | Emergency Department Record ---
History of Present Illness - General Chief complaint: Hypergylcemia Stated complaint: CHECK HER SUGAR Time Seen by Provider: 05/21/18 22:37 Source: Patient Mode of Arrival: Ambulatory Limitations: No limitations - History of Present Illness Initial comments: pt has been unser a lot of stress lately and dealing with mental issues so she has chosen not to take her meds or check her blood sugar. she comes in now stating she thinks she is in dka though she has no symptoms. her mother thought she has fruity breath. Onset/Timin -: Minutes(s) Associated Symptoms: Denies other symptoms - [place] Coma Scale Eye Response: (4) Open spontaneously Motor Response: (6) Obeys commands Verbal Response: (5) Oriented [place] Total: 15 - Related Data Allergies Allergy/AdvReac Type Severity Reaction Status Date / Time pineapple Allergy rash Verified 05/21/18 22:21 Travel Screening - Travel/Exposure Within Last 30 Days Have you traveled within the last 30 days?: No - Travel Symptoms Symptom Screening: None Review of Systems Reviewed: No additional complaints except as noted below Constitutional: Reports: As per HPI. Denies: Chills, Fever, Malaise, Night sweats, Weakness, Weight change Eyes: Reports: As per HPI. Denies: Eye discharge, Eye pain, Photophobia, Vision change ENT: Reports: As per HPI. Denies: Congestion, Dental pain, Ear pain, Epistaxis , Hearing loss, Throat pain Respiratory: Reports: As per HPI. Denies: Cough, Dyspnea, Hemoptysis, Stridor, Wheezes Cardiovascular: Reports: As per HPI. Denies: Arrhythmia, Chest pain, Dyspnea on exertion, Edema, Murmurs, Orthopnea, Palpitations, Paroxysmal nocturnal dyspnea, Rheumatic Fever, Syncope Endocrine: Reports: As per HPI. Denies: Fatigue, Heat or cold intolerance, Polydipsia, Polyuria Gastrointestinal: Reports: As per HPI. Denies: Abdominal pain, Constipation, Diarrhea, Hematemesis, Hematochezia, Melena, Nausea, Vomiting Genitourinary: Reports: As per HPI. Denies: Abnormal menses, Discharge, Dyspareunia, Dysuria, Frequency, Hematuria, Incontinence, Retention, Urgency Musculoskeletal: Reports: As per HPI. Denies: Arthralgia, Back pain, Gout, Joint swelling, Myalgia, Neck pain Skin: Reports: As per HPI. Denies: Bruising, Change in color, Change in hair/ nails, Lesions, Pruritus, Rash Neurological: Reports: As per HPI. Denies: Abnormal gait, Confusion, Headache, Numbness, Paresthesias, Seizure, Tingling, Tremors, Vertigo, Weakness Psychiatric: Reports: As per HPI. Denies: Anxiety, Auditory hallucinations, Depression, Homicidal thoughts, Suicidal thoughts, Visual hallucinations Hematological/Lymphatic: Reports: As per HPI. Denies: Anemia, Blood Clots, Easy bleeding, Easy bruising, Swollen glands Past Medical History - SOCIAL HISTORY Smoking Status: Former smoker - RESPIRATORY Hx Respiratory Disorders: No - CARDIOVASCULAR Hx Cardio Disorders: Yes Hx Palpitations: Yes - NEURO Hx Neuro Disorders: No - GI Hx GI Disorders: No - Hx Genitourinary Disorders: No - ENDOCRINE Hx Endocrine Disorders: Yes Hx Diabetes: Yes (DM1) - MUSCULOSKELETAL Hx Musculoskeletal Disorders: No - PSYCH Hx Psych Problems: Yes Hx Anxiety: Yes Hx Depression: Yes (Major depressive disorder) - HEMATOLOGY/ONCOLOGY Hx Hematology/Oncology Disorders: No Family Medical History Any Significant Family History?: Yes Hx Cancer: Grandparents Hx Diabetes: Father *Diabetes Comment: Type 1 Hx Heart Disease: Mother, Grandparents Hx HTN: Mother, Grandparents Physical Exam - General General Appearance: Alert, Oriented x3, Cooperative, Mild distress - Head Head exam: Normal inspection - Eye Eye exam: Normal appearance, PERRL, EOMI Pupils: Normal accommodation - ENT ENT exam: Normal exam, Mucous membranes moist, Normal external ear exam, Normal orophraynx Ear exam: Normal external inspection. negative: External canal tenderness Nasal Exam: Normal inspection. negative: Discharge, Sinus tenderness Mouth exam: Normal external inspection, Tongue normal Teeth exam: Normal inspection. negative: Dental caries Throat exam: Normal inspection. negative: Tonsillar erythema, Tonsillar exudate - Neck Neck exam: Normal inspection, Full ROM. negative: Tenderness - Respiratory Respiratory exam: Normal lung sounds bilaterally. negative: Respiratory distress - Cardiovascular Cardiovascular Exam: Regular rate, Normal rhythm, Normal heart sounds - GI/Abdominal GI/Abdominal exam: Soft, Normal bowel sounds. negative: Tenderness - Rectal Rectal exam: Deferred - exam: Deferred - Extremities Extremities exam: Normal inspection, Full ROM, Normal capillary refill. negative: Tenderness - Back Back exam: Reports: Normal inspection, Full ROM. Denies: Muscle spasm, Rash noted, Tenderness - Neurological Neurological exam: Alert, CN II-XII intact, Normal gait, Oriented X3, Reflexes normal - Psychiatric Psychiatric exam: Agitated, Anxious - Skin Skin exam: Dry, Intact, Normal color, Warm Course Vital Signs 05/21/18 22:10 Temperature 97.9 F Pulse Rate [ 98 H Pulse Ox Probe] Respiratory 17 Rate Blood Pressure 121/64 [Right Arm] Pulse Ox 100 - Reevaluation(s) Reevaluation #1: 05/22/18 02:10 pts bs is now 183 Medical Decision Making - Lab Data Result diagrams: 05/21/18 23:11 05/21/18 23:11 Lab Results 05/21/18 05/21/18 Range/Units 22:12 Unknown POC Glucose 238 H (70-110) mg/dL Urine Color Yellow Urine Appearance Clear Urine pH 5.0 (5.0-8.0) Ur Specific [place] 1.020 (1.002-1.030) Urine Protein Negative (NEGATIVE) Urine Glucose (UA) Negative (NEGATIVE) Urine Ketones 80 mg/dl H (NEGATIVE) Urine Blood Large H (NEGATIVE) Urine Nitrite Negative (NEGATIVE) Urine Bilirubin Negative (NEGATIVE) Urine Urobilinogen 0.2 (0.20 - 1.00) E.U./dL Ur Leukocyte Esterase Negative (NEGATIVE) Urine RBC 0 - 2 (NONE SEEN) Urine WBC None seen (0-2/hpf) Ur Epithelial Cells 0 - 2 (FEW) Disposition Disposition: Discharge Clinical Impression: Hyperglycemia due to type 1 diabetes mellitus Disposition: Home, Self-Care Condition: (1) Good Instructions: Diabetic Hyperglycemia (ED) Additional Instructions: follow up with family doctor. return sooner if worse. monitor blood sugars and eat and take meds as directed Forms: Patient Portal Access Quality - Quality Measures Quality Measures: N/A - Blood Pressure Screening Does Patient Have Any of the Following: No Blood Pressure Classification: Normal BP Reading Systolic Measurement: 117 Diastolic Measurement: 67 Screening for High Blood Pressure: < Normal BP, F/U Not Required > [G8783]
[2018-05-21 23:21] LABS: BASO % 0.2 % (0-6); EOS % 0.1 % (0-6); HEMATOCRIT 40.6 % (35.0-47.0); HEMOGLOBIN 13.3 gm/dl (11.6-16.0); LYMPH % 16.3 % (16-45); MEAN CELL VOLUME 87.5 fl (81-97); MEAN CORPUSCULAR HEMOGLOBIN 28.7 pg (27-33); MEAN CORPUSCULAR HGB CONC 32.8 g/dl (32-36); MEAN PLATELET VOLUME 11.1 fl (7.4-10.4); MONO % 6.4 % (0-9); PLATELET COUNT 316 K/uL (130-400); RED BLOOD COUNT 4.64 M/uL (3.80-5.40); RED CELL DISTRIBUTION WIDTH 14.4 % (11.5-14.5); WHITE BLOOD COUNT W/O DIFF 8.4 K/uL (4.2-12.2)
[2018-05-21 23:30] LABS: BLOOD UREA NITROGEN 5 mg/dL (6-20); CREATININE 0.6 mg/dL (0.5-0.9); EST GLOMERULAR FILTRATION RATE > 60 mL/min
[2018-05-21 23:33] LABS: GLUCOSE,RANDOM 246 mg/dL (74-109)
[2018-05-21] MEDS ORDERED: HUMULIN R 100 UNIT/ML VIAL SQ ONE (23:38)
[2018-05-21] MEDS ORDERED: 0.9 % SODIUM CHLORIDE 1,000 ML BAG IV ONE (23:47)
== END 2018-05-22 02:22 | disposition home or self-care (01) ==
LOC: ER 21:54
DX: E10.65 Type 1 diabetes mellitus with hyperglycemia (principal); Z79.4 Long term (current) use of insulin; Z87.891 Personal history of nicotine dependence
CPT/HCPCS: 36416; 80048; 81001; 82009; 82800; 82948; 85025; 96372; 99284; J7030

== ENCOUNTER 2018-05-27 23:27 | Emergency (ER) | payer MEDICAID ==
--- NOTE | 2018-05-28 00:30 | Emergency Department Record ---
History of Present Illness - General Chief Complaint: Wound, puncture Stated Complaint: "BOTH HANDS INFECTED" Time Seen by Provider: 05/28/18 00:01 Source: Patient Mode of Arrival: Ambulatory Limitations: No limitations - History of Present Illness Initial Commments: pt is here c/o sores on her hands from picking at them. she has been stressed. she is going to see her counselor on wednesday. Onset/Timin -: Days(s) Extremity Location: Left: Hand, Right: Hand Place: Home Context: Other Associated Symptoms: None - [place] Coma Scale Eye Response: (4) Open spontaneously Motor Response: (6) Obeys commands Verbal Response: (5) Oriented [place] Total: 15 - Related Data Previous Rx's Medication Instructions Recorded Cephalexin [Keflex] 500 mg PO BID #14 cap 05/28/18 Allergies Allergy/AdvReac Type Severity Reaction Status Date / Time pineapple Allergy rash Verified 05/21/18 22:21 Travel Screening - Travel/Exposure Within Last 30 Days Have you traveled within the last 30 days?: No Review of Systems Reviewed: No additional complaints except as noted below Constitutional: Reports: As per HPI. Denies: Chills, Fever, Malaise, Night sweats, Weakness, Weight change Eyes: Reports: As per HPI. Denies: Eye discharge, Eye pain, Photophobia, Vision change ENT: Reports: As per HPI. Denies: Congestion, Dental pain, Ear pain, Epistaxis , Hearing loss, Throat pain Respiratory: Reports: As per HPI. Denies: Cough, Dyspnea, Hemoptysis, Stridor, Wheezes Cardiovascular: Reports: As per HPI. Denies: Arrhythmia, Chest pain, Dyspnea on exertion, Edema, Murmurs, Orthopnea, Palpitations, Paroxysmal nocturnal dyspnea, Rheumatic Fever, Syncope Endocrine: Reports: As per HPI. Denies: Fatigue, Heat or cold intolerance, Polydipsia, Polyuria Gastrointestinal: Reports: As per HPI. Denies: Abdominal pain, Constipation, Diarrhea, Hematemesis, Hematochezia, Melena, Nausea, Vomiting Genitourinary: Reports: As per HPI. Denies: Abnormal menses, Discharge, Dyspareunia, Dysuria, Frequency, Hematuria, Incontinence, Retention, Urgency Musculoskeletal: Reports: As per HPI. Denies: Arthralgia, Back pain, Gout, Joint swelling, Myalgia, Neck pain Skin: Reports: As per HPI. Denies: Bruising, Change in color, Change in hair/ nails, Lesions, Pruritus, Rash Neurological: Reports: As per HPI. Denies: Abnormal gait, Confusion, Headache, Numbness, Paresthesias, Seizure, Tingling, Tremors, Vertigo, Weakness Psychiatric: Reports: As per HPI. Denies: Anxiety, Auditory hallucinations, Depression, Homicidal thoughts, Suicidal thoughts, Visual hallucinations Hematological/Lymphatic: Reports: As per HPI. Denies: Anemia, Blood Clots, Easy bleeding, Easy bruising, Swollen glands Past Medical History - SOCIAL HISTORY Smoking Status: Former smoker Alcohol Use: None Drug Use: None - RESPIRATORY Hx Respiratory Disorders: No - CARDIOVASCULAR Hx Cardio Disorders: Yes Hx Palpitations: Yes - NEURO Hx Neuro Disorders: No - GI Hx GI Disorders: No - Hx Genitourinary Disorders: No - ENDOCRINE Hx Endocrine Disorders: Yes Hx Diabetes: Yes (DM1) - MUSCULOSKELETAL Hx Musculoskeletal Disorders: No - PSYCH Hx Psych Problems: Yes Hx Anxiety: Yes Hx Depression: Yes (Major depressive disorder) - HEMATOLOGY/ONCOLOGY Hx Hematology/Oncology Disorders: No Family Medical History Any Significant Family History?: Yes Hx Cancer: Grandparents Hx Diabetes: Father *Diabetes Comment: Type 1 Hx Heart Disease: Mother, Grandparents Hx HTN: Mother, Grandparents Physical Exam - General General Appearance: Alert, Oriented x3, Cooperative, Mild distress - Head Head exam: Normal inspection - Eye Eye exam: Normal appearance, PERRL, EOMI Pupils: Normal accommodation - ENT ENT exam: Normal exam, Mucous membranes moist, Normal external ear exam, Normal orophraynx Ear exam: Normal external inspection. negative: External canal tenderness Nasal Exam: Normal inspection. negative: Discharge, Sinus tenderness Mouth exam: Normal external inspection, Tongue normal Teeth exam: Normal inspection. negative: Dental caries Throat exam: Normal inspection. negative: Tonsillar erythema, Tonsillar exudate - Neck Neck exam: Normal inspection, Full ROM. negative: Tenderness - Respiratory Respiratory exam: Normal lung sounds bilaterally. negative: Respiratory distress - Cardiovascular Cardiovascular Exam: Regular rate, Normal rhythm, Normal heart sounds - GI/Abdominal GI/Abdominal exam: Soft, Normal bowel sounds. negative: Tenderness - Rectal Rectal exam: Deferred - exam: Deferred - Extremities Extremities exam: Normal inspection, Full ROM, Normal capillary refill, Tenderness Image of Hand: 1 - small sores w erythema 2 - small sores w erythema - Back Back exam: Reports: Normal inspection, Full ROM. Denies: Muscle spasm, Rash noted, Tenderness - Neurological Neurological exam: Alert, CN II-XII intact, Normal gait, Oriented X3 - Psychiatric Psychiatric exam: Normal affect, Normal mood - Skin Skin exam: Dry, Intact, Normal color, Warm Course Vital Signs 05/27/18 23:58 Temperature 97.6 F Pulse Rate [ 66 Pulse Ox Probe] Respiratory 20 Rate Blood Pressure 106/52 [Left Arm] Pulse Ox 100 Disposition Disposition: Discharge Clinical Impression: Cellulitis of hand, Anxiety Disposition: Home, Self-Care Condition: (1) Good Instructions: Wound Healing and Your Diet (ED), Cellulitis (ED) Additional Instructions: follow up with family doctor. return sooner if worse. warm soaks 4 times a day. then apply bacitracin ointment. take meds as prescribed. eat properly Prescriptions: Cephalexin [Keflex] 500 mg PO BID #14 cap Forms: Patient Portal Access Quality - Quality Measures Quality Measures: N/A - Blood Pressure Screening Does Patient Have Any of the Following: No Blood Pressure Classification: Normal BP Reading Systolic Measurement: 106 Diastolic Measurement: 52 Screening for High Blood Pressure: < Normal BP, F/U Not Required > [G8783]
[2018-05-28] MEDS ORDERED: BACITRACIN 500 UNITS/1 PACKET TOP ONE (00:57)
== END 2018-05-28 02:06 | disposition home or self-care (01) ==
LOC: ER 23:27
DX: L03.114 Cellulitis of left upper limb (principal); L03.113 Cellulitis of right upper limb; E10.9 Type 1 diabetes mellitus without complications; F33.9 Major depressive disorder, recurrent, unspecified; Z87.891 Personal history of nicotine dependence
CPT/HCPCS: 36416; 82948; 99282

== ENCOUNTER 2018-05-28 17:21 | Emergency (ER) | payer MEDICAID ==
[2018-05-28] MEDS ORDERED: 0.9 % SODIUM CHLORIDE 1000ML 1,000 ML IV SCH ×2 (17:30→18:30)
[2018-05-28 17:48] LABS: HEMATOCRIT 42.3 % (35.0-47.0); HEMOGLOBIN 13.5 gm/dl (11.6-16.0); MEAN CELL VOLUME 89.2 fl (81-97); MEAN CORPUSCULAR HEMOGLOBIN 28.5 pg (27-33); MEAN CORPUSCULAR HGB CONC 31.9 g/dl (32-36); MEAN PLATELET VOLUME 11.1 fl (7.4-10.4); PLATELET COUNT 440 K/uL (130-400); RED BLOOD COUNT 4.74 M/uL (3.80-5.40); RED CELL DISTRIBUTION WIDTH 15.4 % (11.5-14.5)
[2018-05-28 17:57] LABS: WHITE BLOOD COUNT W/O DIFF 20.6 K/uL (4.2-12.2)
[2018-05-28 18:04] LABS: BLOOD UREA NITROGEN 4 mg/dL (6-20); CREATININE 0.9 mg/dL (0.5-0.9); EST GLOMERULAR FILTRATION RATE > 60 mL/min
[2018-05-28 18:05] LABS: PLATELET ESTIMATE NORMAL (NORMAL)
[2018-05-28 18:07] LABS: GLUCOSE,RANDOM 375 mg/dL (74-109)
[2018-05-28] MEDS: HUMULIN R 100 UNIT/ML VIAL IV ONE (18:17)
--- NOTE | 2018-05-28 18:21 | Emergency Department Record ---
History of Present Illness - General Chief complaint: Hypergylcemia Stated complaint: THINKS SHE IS DKA Time Seen by Provider: 05/28/18 17:23 Source: Patient, RN notes reviewed Mode of Arrival: Stretcher - History of Present Illness Initial comments: patient presented via EMS with high glucose and kausmal breathing and history of not taking her insulin. DM type one. Patient told me she didn't take her insulin today Onset/Timin -: Days(s) Associated Symptoms: Nausea/vomiting, Other - Nathan Coma Scale Eye Response: (4) Open spontaneously Motor Response: (6) Obeys commands Verbal Response: (5) Oriented Nathan Total: 15 - Related Data Previous Rx's Medication Instructions Recorded Cephalexin [Keflex] 500 mg PO BID #14 cap 05/28/18 Allergies Allergy/AdvReac Type Severity Reaction Status Date / Time pineapple Allergy rash Verified 05/21/18 22:21 Travel Screening - Travel/Exposure Within Last 30 Days Have you traveled within the last 30 days?: No - Travel/Exposure Within Last Year Have you traveled outside the [place] in the last year?: No - Additonal Travel Details Have you been exposed to anyone with a communicable illness?: No - Travel Symptoms Symptom Screening: None Review of Systems Reviewed: No additional complaints except as noted below Constitutional: Reports: As per HPI. Denies: Chills, Fever, Malaise, Night sweats, Weakness, Weight change Eyes: Reports: As per HPI. Denies: Eye discharge, Eye pain, Photophobia, Vision change ENT: Reports: As per HPI. Denies: Congestion, Dental pain, Ear pain, Epistaxis , Hearing loss, Throat pain Respiratory: Reports: As per HPI. Denies: Cough, Dyspnea, Hemoptysis, Stridor, Wheezes Cardiovascular: Reports: As per HPI. Denies: Arrhythmia, Chest pain, Dyspnea on exertion, Edema, Murmurs, Orthopnea, Palpitations, Paroxysmal nocturnal dyspnea, Rheumatic Fever, Syncope Endocrine: Reports: As per HPI. Denies: Fatigue, Heat or cold intolerance, Polydipsia, Polyuria Gastrointestinal: Reports: As per HPI, Abdominal pain, Nausea. Denies: Constipation, Diarrhea, Hematemesis, Hematochezia, Melena, Vomiting Genitourinary: Reports: As per HPI. Denies: Abnormal menses, Discharge, Dyspareunia, Dysuria, Frequency, Hematuria, Incontinence, Retention, Urgency Musculoskeletal: Reports: As per HPI. Denies: Arthralgia, Back pain, Gout, Joint swelling, Myalgia, Neck pain Skin: Reports: As per HPI. Denies: Bruising, Change in color, Change in hair/ nails, Lesions, Pruritus, Rash Neurological: Reports: As per HPI. Denies: Abnormal gait, Confusion, Headache, Numbness, Paresthesias, Seizure, Tingling, Tremors, Vertigo, Weakness Psychiatric: Reports: As per HPI. Denies: Anxiety, Auditory hallucinations, Depression, Homicidal thoughts, Suicidal thoughts, Visual hallucinations Hematological/Lymphatic: Reports: As per HPI. Denies: Anemia, Blood Clots, Easy bleeding, Easy bruising, Swollen glands Past Medical History - SOCIAL HISTORY Smoking Status: Former smoker Alcohol Use: None Drug Use: None - RESPIRATORY Hx Respiratory Disorders: No - CARDIOVASCULAR Hx Cardio Disorders: Yes Hx Palpitations: Yes - NEURO Hx Neuro Disorders: No - GI Hx GI Disorders: No - Hx Genitourinary Disorders: No - ENDOCRINE Hx Endocrine Disorders: Yes Hx Diabetes: Yes (DM1) - MUSCULOSKELETAL Hx Musculoskeletal Disorders: No - PSYCH Hx Psych Problems: Yes Hx Anxiety: Yes Hx Depression: Yes (Major depressive disorder) - HEMATOLOGY/ONCOLOGY Hx Hematology/Oncology Disorders: No Family Medical History Any Significant Family History?: No Hx Cancer: Grandparents Hx Diabetes: Father *Diabetes Comment: Type 1 Hx Heart Disease: Mother, Grandparents Hx HTN: Mother, Grandparents Physical Exam - General General Appearance: Alert, Oriented x3, Cooperative, Moderate distress - Head Head exam: Normal inspection - Eye Eye exam: Normal appearance, PERRL Pupils: Normal accommodation - ENT ENT exam: Mucous membranes dry, Normal external ear exam, Normal orophraynx, TM' s normal bilaterally Ear exam: Normal external inspection. negative: External canal tenderness Nasal Exam: Normal inspection. negative: Discharge, Sinus tenderness Mouth exam: Normal external inspection, Tongue normal Teeth exam: Normal inspection. negative: Dental caries Throat exam: Normal inspection. negative: Tonsillar erythema, Tonsillar exudate - Neck Neck exam: Normal inspection, Full ROM. negative: Tenderness - Respiratory Respiratory exam: Normal lung sounds bilaterally. negative: Respiratory distress - Cardiovascular Cardiovascular Exam: Regular rate, Normal rhythm, Normal heart sounds - GI/Abdominal GI/Abdominal exam: Soft, Normal bowel sounds, Tenderness - Rectal Rectal exam: Deferred - exam: Deferred - Extremities Extremities exam: Normal inspection, Full ROM, Normal capillary refill. negative: Tenderness - Back Back exam: Reports: Normal inspection, Full ROM. Denies: Muscle spasm, Rash noted, Tenderness - Neurological Neurological exam: Alert, Normal gait, Oriented X3, Reflexes normal - Psychiatric Psychiatric exam: Normal affect, Normal mood - Skin Skin exam: Dry, Intact, Normal color, Warm Course Vital Signs 05/28/18 17:28 Temperature 98.5 F Pulse Rate 116 H Respiratory 24 Rate Blood Pressure 91/71 Pulse Ox 98 - Reevaluation(s) Reevaluation #1: explained to the mom and patient she needs to be transfered to [facility] to treat her DKA 05/28/18 18:24 Reevaluation #2: discussed case with Dr. Kothari at [facility] and will transfer 05/28/18 18:27 05/28/18 18:41 Reevaluation #3: acuchecks every hour and BMP every 2 hours 05/28/18 18:40 Medical Decision Making - Lab Data Result diagrams: 05/28/18 17:40 05/28/18 17:40 Lab Results 05/28/18 05/28/18 Range/Units 17:40 17:40 WBC 20.6 H* (4.2-12.2) K/uL RBC 4.74 (3.80-5.40) M/uL Hgb 13.5 (11.6-16.0) gm/dl Hct 42.3 (35.0-47.0) % MCV 89.2 (81-97) fl MCH 28.5 (27-33) pg MCHC 31.9 L (32-36) g/dl RDW 15.4 H (11.5-14.5) % Plt Count 440 H (130-400) K/uL MPV 11.1 H (7.4-10.4) fl Neutrophils % 82.0 H (47-80) % Band Neutrophils % 8.0 H (0-5) % Eosinophils % Not Reportable Basophils % Not Reportable Lymphocytes 4.0 L (16-45) % Monocytes 6.0 (0-9) % Platelet Estimate Normal (NORMAL) RBC Morphology Normal VBG pH 7.03 L (7.33-7.43) Sodium 140 (136-145) mmol/L Potassium 4.3 (3.4-4.5) mmol/L Chloride 96 L (98-107) mmol/L Carbon Dioxide 4.0 L (22-29) mmol/L Anion Gap 40.0 H (7-16) BUN 4 L (6-20) mg/dL Creatinine 0.9 (0.5-0.9) mg/dL Estimated GFR > 60 mL/min Random Glucose 375 H (74-109) mg/dL Calcium 8.5 L (8.6-10.0) mg/dL Acetone, Qual (NEGATIVE) Disposition Clinical Impression: DKA (diabetic ketoacidoses) Qualifiers: Diabetes mellitus type: type 1 Diabetes mellitus complication detail: without coma Qualified Code(s): E10.10 - Type 1 diabetes mellitus with ketoacidosis without coma Disposition: Acute Care Hospital Transfer Condition: (2) Stable Instructions: Diabetic Ketoacidosis (ED) Forms: Patient Portal Access Time of Disposition: 18:24 Quality - Quality Measures Quality Measures: N/A - Blood Pressure Screening Does Patient Have Any of the Following: No Blood Pressure Classification: Normal BP Reading Systolic Measurement: 91 Diastolic Measurement: 71 Screening for High Blood Pressure: < Normal BP, F/U Not Required > [G8783]
[2018-05-28] MEDS: INSULIN REGULAR, HUMAN 100 UNIT in 0.9 % SODIUM CHLORIDE 100ML 100 ML IV SCH ×2 (18:33)
[2018-05-28] MEDS: 0.9 % SODIUM CHLORIDE 1,000 ML BAG IV ONE (18:35)
[2018-05-28 20:04] LABS: HCG,QUALITATIVE URINE NEGATIVE (NEGATIVE)
[2018-05-28 20:06] LABS: URINE APPEARANCE CLEAR; URINE BACTERIA NONE SEEN; URINE BILIRUBIN NEGATIVE (NEGATIVE); URINE BLOOD MODERATE (NEGATIVE); URINE COLOR YELLOW; URINE EPITHELIAL CELLS 0 - 2 (FEW); URINE KETONE 80 mg/dL (NEGATIVE); URINE LEUKOCYTE ESTERASE NEGATIVE (NEGATIVE); URINE NITRITE NEGATIVE (NEGATIVE); URINE PROTEIN NEGATIVE (NEGATIVE); URINE UROBILINOGEN 0.2 E.U./dL (0.20 - 1.00); URINE WBC 0 - 2 (0-2/hpf)
== END 2018-05-28 20:25 | disposition short-term general hospital (02) ==
LOC: ER 17:21
DX: E10.10 Type 1 diabetes mellitus with ketoacidosis without coma (principal); Z79.4 Long term (current) use of insulin; R11.2 Nausea with vomiting, unspecified; Z87.891 Personal history of nicotine dependence
CPT/HCPCS: 36416; 80048; 81001; 81025; 82009; 82800; 82948; 84132; 85027; 96361; 96365; 96366; 96375; 99285

== ENCOUNTER 2018-06-08 20:35 | Emergency (ER) | payer MEDICAID ==
[2018-06-08 21:04] LABS: BASO % 0.7 % (0-6); GRAN % 73.6 % (47-80); HEMATOCRIT 39.5 % (35.0-47.0); HEMOGLOBIN 12.2 gm/dl (11.6-16.0); LYMPH % 19.3 % (16-45); MEAN CELL VOLUME 91.4 fl (81-97); MEAN CORPUSCULAR HEMOGLOBIN 28.2 pg (27-33); MEAN CORPUSCULAR HGB CONC 30.9 g/dl (32-36); MEAN PLATELET VOLUME 11.4 fl (7.4-10.4); MONO % 6.4 % (0-9); PLATELET COUNT 365 K/uL (130-400); RED BLOOD COUNT 4.32 M/uL (3.80-5.40); RED CELL DISTRIBUTION WIDTH 14.5 % (11.5-14.5); WHITE BLOOD COUNT W/O DIFF 6.1 K/uL (4.2-12.2)
[2018-06-08] MEDS: ONDANSETRON HCL IV 4 MG/2 ML VIAL IV ONE (21:05)
[2018-06-08 21:08] LABS: ACETONE,SERUM POSITIVE (NEGATIVE)
[2018-06-08 21:09] LABS: BLOOD UREA NITROGEN 17 mg/dL (6-20); CREATININE 0.7 mg/dL (0.5-0.9); EST GLOMERULAR FILTRATION RATE > 60 mL/min
[2018-06-08 21:10] LABS: TOTAL PROTEIN 7.5 g/dL (6.6-8.7)
[2018-06-08] MEDS: 0.9 % SODIUM CHLORIDE 1,000 ML BAG IV ONE (21:10)
--- NOTE | 2018-06-08 21:11 | Emergency Department Record ---
History of Present Illness - General Chief complaint: Fatigue and Weakness Stated complaint: NOT FEELING HERSELF,NAUSEA,LIGHT SENSITIVITY Time Seen by Provider: 06/08/18 20:36 Source: Patient Mode of Arrival: Ambulatory Limitations: No limitations - History of Present Illness Initial comments: The patient is here due to not feeling well for one day with nausea and generalized weakness. She has a hx of DM Type I and has been in DKA twice in the last 2 weeks. She was [place] [facility] [place] then last [place] [facility]. She was discharged 48 hours ago and since has refused to take her insulin due to her depression. She denies any fever, chills, vomiting, or diarrhea. MD Complaint: Generalized weakness Onset/Timin -: Days(s) Quality: Other Consistency: Constant Context: Depression, History of similar, Recent illness, Other Associated Symptoms: Confusion, Nausea/vomiting - Nathan Coma Scale Eye Response: (4) Open spontaneously Motor Response: (6) Obeys commands Verbal Response: (5) Oriented [place] Total: 15 - Related Data Home Medications Medication Instructions Recorded Confirmed Last Taken Clomipramine HCl 25 mg PO QHS 06/08/18 06/08/18 Unknown Allergies Allergy/AdvReac Type Severity Reaction Status Date / Time carrot Allergy PT UNSURE Verified 06/08/18 23:40 OF REACTION pineapple Allergy rash Verified 06/08/18 23:40 Travel Screening - Travel/Exposure Within Last 30 Days Have you traveled within the last 30 days?: No Review of Systems Constitutional: Denies: Chills, Fever Eyes: Denies: Eye discharge ENT: Denies: Congestion Respiratory: Denies: Cough, Dyspnea Cardiovascular: Denies: Arrhythmia Endocrine: Reports: Fatigue Gastrointestinal: Reports: Nausea. Denies: Abdominal pain, Diarrhea, Vomiting Genitourinary: Denies: Dysuria Musculoskeletal: Denies: Back pain Past Medical History - SOCIAL HISTORY Smoking Status: Former smoker Alcohol Use: None Drug Use: None - RESPIRATORY Hx Respiratory Disorders: No - CARDIOVASCULAR Hx Cardio Disorders: Yes Hx Palpitations: Yes - NEURO Hx Neuro Disorders: No - GI Hx GI Disorders: No - Hx Genitourinary Disorders: No - ENDOCRINE Hx Endocrine Disorders: Yes Hx Diabetes: Yes (DM1) - MUSCULOSKELETAL Hx Musculoskeletal Disorders: No - PSYCH Hx Psych Problems: Yes Hx Anxiety: Yes Hx Depression: Yes (Major depressive disorder) - HEMATOLOGY/ONCOLOGY Hx Hematology/Oncology Disorders: No Family Medical History Any Significant Family History?: Yes Hx Cancer: Grandparents Hx Diabetes: Father *Diabetes Comment: Type 1 Hx Heart Disease: Mother, Grandparents Hx HTN: Mother, Grandparents Physical Exam - General General Appearance: Alert, Oriented x3, Cooperative, No acute distress - Head Head exam: Atraumatic, Normocephalic, Normal inspection - Eye Eye exam: Normal appearance, PERRL - Neck Neck exam: Normal inspection, Full ROM. negative: Tenderness - Respiratory Respiratory exam: Normal lung sounds bilaterally. negative: Respiratory distress - Cardiovascular Cardiovascular Exam: Regular rate, Normal rhythm, Normal heart sounds - GI/Abdominal GI/Abdominal exam: Soft, Normal bowel sounds. negative: Tenderness - Extremities Extremities exam: Normal inspection, Full ROM, Normal capillary refill. negative: Tenderness - Back Back exam: Reports: Normal inspection - Neurological Neurological exam: Alert. negative: Motor sensory deficit Course Vital Signs 06/08/18 20:46 Temperature 97.7 F Pulse Rate 96 H Respiratory 20 Rate Blood Pressure 80/43 Pulse Ox 96 - Reevaluation(s) Reevaluation #1: The patient is doing very well at this time. She denies any pain or discomfort. I did discuss the diagnosis of DKA with her and the need for hospital transfer. The patient would like to to [place] [facility]. She was recently on the D service so we will initiate contact with them. 06/08/18 21:32 Reevaluation #2: I did discuss the case with Dr. Gloria at [facility] and he does accept the patient for admission. 06/08/18 21:51 06/08/18 21:52 Medical Decision Making - Data Complexity MDM Data: Labs Ordered and/or Reviewed - Lab Data Result diagrams: 06/08/18 20:50 06/08/18 20:50 Lab Results 06/08/18 06/08/18 Range/Units 20:50 20:57 WBC 6.1 (4.2-12.2) K/uL RBC 4.32 (3.80-5.40) M/uL Hgb 12.2 (11.6-16.0) gm/dl Hct 39.5 (35.0-47.0) % MCV 91.4 (81-97) fl MCH 28.2 (27-33) pg MCHC 30.9 L (32-36) g/dl RDW 14.5 (11.5-14.5) % Plt Count 365 (130-400) K/uL MPV 11.4 H (7.4-10.4) fl Gran % 73.6 (47-80) % Lymphocytes % 19.3 (16-45) % Monocytes % 6.4 (0-9) % Eosinophils % 0.0 (0-6) % Basophils % 0.7 (0-6) % POC Glucose 437 H (70-110) mg/dL Disposition Disposition: Transfer Clinical Impression: DKA (diabetic ketoacidoses) Qualifiers: Diabetes mellitus type: type 1 Diabetes mellitus complication detail: without coma Qualified Code(s): E10.10 - Type 1 diabetes mellitus with ketoacidosis without coma Disposition: Acute Care Hospital Transfer [place] [facility] Reason For Transfer: DKA Accepting Physician: Faizan Time Discussed w/Accepting Physician: 21:52 Condition: (2) Stable Forms: Patient Portal Access Time of Disposition: 21:52 Quality - Quality Measures Quality Measures: N/A - Blood Pressure Screening View Details: Yes Does Patient Have Any of the Following: No Blood Pressure Classification: Normal BP Reading Systolic Measurement: 80 Diastolic Measurement: 43 Screening for High Blood Pressure: < Normal BP, F/U Not Required > [G8783]
[2018-06-08 21:15] LABS: ALBUMIN 4.4 g/dL (4.0-5.0); ALKALINE PHOSPHATASE 97 U/L (35-104); ALT/SGPT 454 U/L (<33); AST/SGOT 197 U/L (10.0-35.0); BILIRUBIN,DIRECT < 0.2 mg/dL (0-0.3)
[2018-06-08 21:23] LABS: GLUCOSE,RANDOM 469 mg/dL (74-109)
[2018-06-08] MEDS: INSULIN REGULAR, HUMAN 100 UNIT in 0.9 % SODIUM CHLORIDE 100ML 100 ML IV SCH ×2 (21:34)
[2018-06-08 22:56] LABS: URINE APPEARANCE CLEAR; URINE COLOR YELLOW
[2018-06-08 22:57] LABS: HCG,QUALITATIVE URINE NEGATIVE (NEGATIVE); URINE BILIRUBIN NEGATIVE (NEGATIVE); URINE BLOOD TRACE-LYSED (NEGATIVE); URINE KETONE 80 mg/dL (NEGATIVE); URINE LEUKOCYTE ESTERASE NEGATIVE (NEGATIVE); URINE NITRITE NEGATIVE (NEGATIVE); URINE PROTEIN NEGATIVE (NEGATIVE); URINE UROBILINOGEN 0.2 E.U./dL (0.20 - 1.00)
[2018-06-08 22:58] LABS: URINE BACTERIA NONE SEEN; URINE EPITHELIAL CELLS 0 - 2 (FEW); URINE RBC 0 - 2 (NONE SEEN); URINE WBC 0 - 2 (0-2/hpf)
[2018-06-08] MEDS: 0.9 % SODIUM CHLORIDE 1000ML 1,000 ML IV ONE (22:58)
[2018-06-08] MEDS ORDERED: INSULIN REGULAR, HUMAN 100 UNIT in 0.9 % SODIUM CHLORIDE 100ML 100 ML IV SCH ×2 (23:30)
[2018-06-08] MEDS: DEXTROSE 5 % AND 0.9 % NACL 1,000 ML IV PRN (23:40)
== END 2018-06-09 00:48 | disposition short-term general hospital (02) ==
LOC: ER 20:35
DX: E10.10 Type 1 diabetes mellitus with ketoacidosis without coma (principal); R53.1 Weakness; R11.0 Nausea; R41.0 Disorientation, unspecified; F32.9 Major depressive disorder, single episode, unspecified; Z79.4 Long term (current) use of insulin; Z87.891 Personal history of nicotine dependence
CPT/HCPCS: 36416; 80048; 80076; 80329; 81001; 81025; 82009; 82800; 82948; 85025; 96361; 96365; 96366; 96375; 99285; J7030; J7042

== ENCOUNTER 2018-06-13 21:52 | Emergency (ER) | payer MEDICAID ==
[2018-06-13 22:22] LABS: BASO % 0.9 % (0-6); EOS % 1.5 % (0-6); GRAN % 60.4 % (47-80); HEMATOCRIT 35.8 % (35.0-47.0); HEMOGLOBIN 11.3 gm/dl (11.6-16.0); LYMPH % 29.2 % (16-45); MEAN CELL VOLUME 92.5 fl (81-97); MEAN CORPUSCULAR HGB CONC 31.6 g/dl (32-36); MEAN PLATELET VOLUME 11.3 fl (7.4-10.4); PLATELET COUNT 307 K/uL (130-400); RED BLOOD COUNT 3.87 M/uL (3.80-5.40); RED CELL DISTRIBUTION WIDTH 15.1 % (11.5-14.5); WHITE BLOOD COUNT W/O DIFF 7.5 K/uL (4.2-12.2)
--- NOTE | 2018-06-13 22:22 | Emergency Department Record ---
History of Present Illness - General Chief Complaint: Crisis Evaluation Stated Complaint: MEDICAL CLEARENCE Time Seen by Provider: 06/13/18 21:55 Source: Patient Mode of Arrival: Ambulatory Limitations: No limitations Travel/Exposure to [place] Within 21 Days of Symptoms: No - History of Present Illness Initial Comments: 23 yo female presents to ED for evaluation of feeling so depression and feeling "overwhelmed" to the point where she is unable to manage her IDDM. Patient reports that she is "sick of going into the hospital every 3 days" for her diabetes. Patient reports that she has been [id number] Klonopin as needed for her anxiety and OCD symptoms, but does not take any medications for treatment of depression at her baseline. Patient reports that she has a therapist as well but has been unable to to see them due to numerous hospitalizations. Patient also reports that she has seen several psychiatrists while hospitalized "but they don't listen to me". Patient specifically denies SI/HI, reports that she wants to go to [facility] for mental health evaluation voluntarily. MD Complaint: Feels depressed -: Week(s) Associated Psychiatric Symptoms: Depression History of same: Yes Quality: Constant Improves With: None Worsens With: Therapy Context: Unsure Associated Symptoms: Denies other symptoms Treatments Prior to Arrival: None - Nathan Coma Scale Eye Response: (4) Open spontaneously Motor Response: (6) Obeys commands Verbal Response: (5) Oriented [place] Total: 15 - Related Data Allergies Allergy/AdvReac Type Severity Reaction Status Date / Time carrot Allergy PT UNSURE Verified 06/08/18 23:40 OF REACTION pineapple Allergy rash Verified 06/08/18 23:40 Review of Systems Constitutional: Denies: Chills, Fever, Malaise, Night sweats Eyes: Denies: Eye discharge, Eye pain ENT: Denies: Congestion, Ear pain Respiratory: Denies: Cough, Dyspnea Cardiovascular: Denies: Chest pain, Dyspnea on exertion Endocrine: Denies: Fatigue, Heat or cold intolerance Gastrointestinal: Denies: Abdominal pain, Nausea, Vomiting Genitourinary: Denies: Incontinence, Retention Musculoskeletal: Denies: Arthralgia, Back pain, Gout, Joint swelling Skin: Denies: Bruising Neurological: Denies: Abnormal gait, Confusion, Headache, Seizure Psychiatric: Reports: Anxiety, Depression Hematological/Lymphatic: Denies: Anemia, Blood Clots Past Medical History - SOCIAL HISTORY Smoking Status: Former smoker Alcohol Use: None Drug Use: None - RESPIRATORY Hx Respiratory Disorders: No - CARDIOVASCULAR Hx Cardio Disorders: Yes Hx Palpitations: Yes - NEURO Hx Neuro Disorders: No - GI Hx GI Disorders: No - Hx Genitourinary Disorders: No - ENDOCRINE Hx Endocrine Disorders: Yes Hx Diabetes: Yes (DM1) - MUSCULOSKELETAL Hx Musculoskeletal Disorders: No - PSYCH Hx Psych Problems: Yes Hx Anxiety: Yes Hx Depression: Yes (Major depressive disorder) - HEMATOLOGY/ONCOLOGY Hx Hematology/Oncology Disorders: No Family Medical History Any Significant Family History?: Yes Hx Cancer: Grandparents Hx Diabetes: Father *Diabetes Comment: Type 1 Hx Heart Disease: Mother, Grandparents Hx HTN: Mother, Grandparents Physical Exam - General General Appearance: Alert, Oriented x3, Cooperative, Other (Tearful on examination) Limitations: No limitations - Head Head exam: Atraumatic, Normocephalic, Normal inspection Head exam detail: negative: Abrasion, Contusion, [place]'s sign, General tenderness, Hematoma, Laceration - Eye Eye exam: Normal appearance. negative: Conjunctival injection, Periorbital swelling, Periorbital tenderness, Scleral icterus - ENT Ear exam: negative: Auricular hematoma, Auricular trauma Nasal Exam: negative: Active bleeding, Discharge, Dried blood, Foreign body Mouth exam: negative: Drooling, Laceration, Muffled voice, Tongue elevation - Neck Neck exam: Normal inspection. negative: Meningismus, Tenderness - Respiratory Respiratory exam: Normal lung sounds bilaterally. negative: Rales, Respiratory distress, Rhonchi, Stridor - Cardiovascular Cardiovascular Exam: Regular rate, Normal rhythm, Normal heart sounds - GI/Abdominal GI/Abdominal exam: Soft. negative: Rebound, Rigid, Tenderness - Rectal Rectal exam: Deferred - exam: Deferred - Extremities Extremities exam: Normal inspection. negative: Calf tenderness, Pedal edema, Tenderness - Back Back exam: Denies: CVA tenderness (R), CVA tenderness (L) - Neurological Neurological exam: Alert, Normal gait, Oriented X3 - Psychiatric Psychiatric exam: Depressed. negative: Homicidal ideation, Suicidal ideation - Skin Skin exam: Normal color. negative: Abrasion Type of lesion: negative: abrasion Course Vital Signs 06/13/18 22:10 Temperature 98.4 F Pulse Rate [ 74 Pulse Ox Probe] Respiratory 20 Rate Blood Pressure 106/61 [Left Arm] Pulse Ox 97 - Reevaluation(s) Reevaluation #1: 06/13/18 22:23 Patient denies SI/HI, wants to seek help through [facility]. Will perform medical clearance and fax all records for review when resulted. Reevaluation #2: 06/13/18 22:50 Laboratory studies were reviewed and are grossly unremarkable for an acute process except for the [id number]: AST: 180 ALT: 294 Alk phose: 114 Reevaluation #3: 06/13/18 23:29 Patient has provided UA sample for medical clearance. Voluntary application completed as well. Reevaluation #4: 06/13/18 23:35 HCG negative UDS negative. Will fax all records to [facility]. Reevaluation #5: 06/14/18 01:19 [facility] re-contacted, have not had time to review the patient's chart as of yet. Patient is resting comfortably at this time. 06/14/18 01:52 [facility] has accepted the patient for voluntary psychiatric evaluation. Patient will be driven by her mother to [facility] for intake. Medical Decision Making - Lab Data Result diagrams: 06/13/18 22:02 06/13/18 22:02 Disposition Disposition: Transfer Clinical Impression: Type 1 diabetes Qualifiers: Diabetes mellitus complication status: without complication Qualified Code(s): E10.9 - Type 1 diabetes mellitus without complications Depression (emotion) Qualifiers: Depression Type: unspecified Qualified Code(s): F32.9 - Major depressive disorder, single episode, unspecified Disposition: Acute Care Hospital Transfer Transfer To: [facility] Reason For Transfer: Mental Health Evaluation Accepting Physician: Chidi Time Discussed w/Accepting Physician: 02:29 Condition: (2) Stable Forms: Patient Portal Access Time of Disposition: 22:24 Quality - Quality Measures Quality Measures: N/A - Blood Pressure Screening Does Patient Have Any of the Following: No Blood Pressure Classification: Normal BP Reading Systolic Measurement: 95 Diastolic Measurement: 56 Screening for High Blood Pressure: < Normal BP, F/U Not Required > [G8783]
[2018-06-13 22:23] LABS: MEAN CORPUSCULAR HEMOGLOBIN 29.1 pg (27-33)
[2018-06-13 22:30] LABS: BLOOD UREA NITROGEN 17 mg/dL (6-20); CREATININE 0.5 mg/dL (0.5-0.9); EST GLOMERULAR FILTRATION RATE > 60 mL/min
[2018-06-13 22:31] LABS: TOTAL PROTEIN 7.2 g/dL (6.6-8.7)
[2018-06-13 22:33] LABS: GLUCOSE,RANDOM 165 mg/dL (74-109)
[2018-06-13 22:35] LABS: ALB/GLOB RATIO 1.5 (1.1-1.8); ALBUMIN 4.3 g/dL (4.0-5.0); ALT/SGPT 294 U/L (<33); AST/SGOT 180 U/L (10.0-35.0)
[2018-06-13 22:36] LABS: ALKALINE PHOSPHATASE 114 U/L (35-104)
[2018-06-13 22:39] LABS: ACETAMINOPHEN < 5.0 ug/mL (10.0-30.0); SALICYLATE < 0.3 mg/dL (2.8-20)
[2018-06-13 22:46] LABS: THYROID STIMULATING HORMONE 1.48 uIU/mL (0.270-4.20)
[2018-06-13 23:34] LABS: AMPHETAMINE SCREEN URINE NOT DETECTED; BARBITURATE SCREEN URINE NOT DETECTED; BENZODIAZEPINE SCREEN URINE NOT DETECTED; COCAINE SCREEN URINE NOT DETECTED; METHADONE SCREEN URINE NOT DETECTED; METHAMPHETAMINE SCREEN NOT DETECTED; OPIATE SCREEN URINE NOT DETECTED; OXYCODONE SCREEN URINE NOT DETECTED; PHENCYCLIDINE SCREEN URINE NOT DETECTED; PROPOXYPHENE SCREEN URINE NOT DETECTED; THC SCREEN URINE NOT DETECTED; TRICYCLIC ANTIDEPRESSANT SCRN NOT DETECTED
== END 2018-06-14 02:04 | disposition short-term general hospital (02) ==
LOC: ER 21:52
DX: F33.9 Major depressive disorder, recurrent, unspecified (principal); E10.9 Type 1 diabetes mellitus without complications; Z79.4 Long term (current) use of insulin; Z87.891 Personal history of nicotine dependence
CPT/HCPCS: 99285 ×2; 85025; 80053; 84443; 81025; 80305; G0480 ×3; 80320; 80329

== ENCOUNTER 2018-07-01 13:30 | Emergency (ER) | payer MEDICAID ==
--- NOTE | 2018-07-01 13:57 | Emergency Department Record ---
History of Present Illness - General Chief complaint: Vomiting Stated complaint: V/D TYPE 1 DIABETIC Time Seen by Provider: 07/01/18 13:40 Source: Patient Mode of Arrival: Stretcher Limitations: No limitations - History of Present Illness Initial comments: The patient is here due to worsening nausea and vomiting for the last 18 hours. She was admitted to [facility] and discharged yesterday afternoon. The patient has a long hx of severe Diabetes and frequent DKA and last took her Insulin yesterday afternoon. Last evening she became nauseated and started vomiting about 12 hours ago. Now her sugar has been reading "high" on her glucometer. complaint: Nausea, Vomiting Onset/Timin -: Days(s) Description of Vomiting: Other Associated Symptoms: Other - Related Data Allergies Allergy/AdvReac Type Severity Reaction Status Date / Time carrot Allergy PT UNSURE Verified 06/08/18 23:40 OF REACTION pineapple Allergy rash Verified 06/08/18 23:40 Travel Screening - Travel/Exposure Within Last 30 Days Have you traveled within the last 30 days?: No - Travel/Exposure Within Last Year Have you traveled outside the [place] in the last year?: No - Additonal Travel Details Have you been exposed to anyone with a communicable illness?: No - Travel Symptoms Symptom Screening: None Review of Systems Constitutional: Denies: Chills, Fever Eyes: Denies: Eye discharge ENT: Denies: Congestion, Throat pain Respiratory: Denies: Dyspnea Cardiovascular: Denies: Arrhythmia Endocrine: Reports: Fatigue Gastrointestinal: Reports: Nausea, Vomiting. Denies: Abdominal pain Genitourinary: Denies: Dysuria Musculoskeletal: Denies: Back pain Skin: Denies: Bruising Past Medical History - SOCIAL HISTORY Smoking Status: Former smoker Alcohol Use: None Drug Use: None - RESPIRATORY Hx Respiratory Disorders: No - CARDIOVASCULAR Hx Cardio Disorders: Yes Hx Palpitations: Yes - NEURO Hx Neuro Disorders: No - GI Hx GI Disorders: No - Hx Genitourinary Disorders: No - ENDOCRINE Hx Endocrine Disorders: Yes Hx Diabetes: Yes (DM1) - MUSCULOSKELETAL Hx Musculoskeletal Disorders: No - PSYCH Hx Psych Problems: Yes Hx Anxiety: Yes Hx Depression: Yes (Major depressive disorder) - HEMATOLOGY/ONCOLOGY Hx Hematology/Oncology Disorders: No Family Medical History Any Significant Family History?: No Hx Cancer: Grandparents Hx Diabetes: Father *Diabetes Comment: Type 1 Hx Heart Disease: Mother, Grandparents Hx HTN: Mother, Grandparents Physical Exam - General General Appearance: Alert, Oriented x3, Cooperative, No acute distress - Head Head exam: Atraumatic, Normocephalic, Normal inspection - Eye Eye exam: PERRL, EOMI - ENT Throat exam: Normal inspection. negative: Tonsillar erythema, Tonsillar exudate - Neck Neck exam: Normal inspection, Full ROM. negative: Tenderness - Respiratory Respiratory exam: Normal lung sounds bilaterally. negative: Respiratory distress - Cardiovascular Cardiovascular Exam: Regular rate, Normal rhythm, Normal heart sounds - GI/Abdominal GI/Abdominal exam: Soft, Normal bowel sounds. negative: Tenderness - Extremities Extremities exam: Normal inspection, Full ROM, Normal capillary refill. negative: Tenderness - Back Back exam: Reports: Normal inspection - Neurological Neurological exam: Alert, Normal gait. negative: Abnormal gait, Motor sensory deficit - Psychiatric Psychiatric exam: negative: Anxious Course Vital Signs 07/01/18 13:38 Temperature 98.3 F Pulse Rate 114 H Respiratory 18 Rate Blood Pressure 95/61 Pulse Ox 100 - Reevaluation(s) Reevaluation #1: The patient's lab values clearly indicate severe DKA. Due to that fact she will need an ICU admission and she would like [place] go [place] [facility] 07/01/18 14:25 Reevaluation #2: The patient is doing OK at this time. Her BP is improving and she is on her 2nd liter of IVF. I did discuss the lab tests with Dr. Urbina at [facility] and he does accept her to the ICU. I also did discuss the case with the ICU attending and he also is aware of the patient coming to the ICU. 07/01/18 14:45 Reevaluation #3: The patient was doing well at discharge and was resting comfortably in no distress. I did give a lengthy report to the paramedics who were transporting the patient [place] [facility] 07/01/18 15:59 Medical Decision Making - Management Options MDM Management: Additional Work-up Planned (e.g. ADM/Transfer/OP Study) - Data Complexity MDM Data: Labs Ordered and/or Reviewed, Decision to Obtain Old Record, Review and Summary of Old Record Discussed - Lab Data Result diagrams: 07/01/18 13:19 07/01/18 13:19 Critical Care Time Critical Care Time: Yes Total Critical Care Time: 35 Disposition Disposition: Transfer Clinical Impression: DKA (diabetic ketoacidoses) Qualifiers: Diabetes mellitus type: type 1 Diabetes mellitus complication detail: without coma Qualified Code(s): E10.10 - Type 1 diabetes mellitus with ketoacidosis without coma Disposition: Acute Care Hospital Transfer [place] [facility] Reason For Transfer: DKA Accepting Physician: Carlitos Time Discussed w/Accepting Physician: 14:47 Condition: (2) Stable Forms: Patient Portal Access Time of Disposition: 14:48 Quality - Quality Measures Quality Measures: N/A - Blood Pressure Screening View Details: Yes Does Patient Have Any of the Following: No Blood Pressure Classification: Normal BP Reading Systolic Measurement: 102 Diastolic Measurement: 54 Screening for High Blood Pressure: < Normal BP, F/U Not Required > [G8783]
[2018-07-01 14:03] LABS: HEMATOCRIT 38.2 % (35.0-47.0); HEMOGLOBIN 11.4 gm/dl (11.6-16.0); MEAN CELL VOLUME 91.6 fl (81-97); MEAN CORPUSCULAR HEMOGLOBIN 27.3 pg (27-33); MEAN CORPUSCULAR HGB CONC 29.8 g/dl (32-36); MEAN PLATELET VOLUME 11.8 fl (7.4-10.4); PLATELET COUNT 551 K/uL (130-400); RED BLOOD COUNT 4.17 M/uL (3.80-5.40); RED CELL DISTRIBUTION WIDTH 13.4 % (11.5-14.5)
[2018-07-01] MEDS: ONDANSETRON HCL IV 4 MG/2 ML VIAL IV ONE (14:04)
[2018-07-01] MEDS: 0.9 % SODIUM CHLORIDE 1,000 ML BAG IV ONE ×2 (14:04→14:23)
[2018-07-01 14:07] LABS: WHITE BLOOD COUNT W/O DIFF 27.8 K/uL (4.2-12.2)
[2018-07-01 14:17] LABS: BLOOD UREA NITROGEN 21 mg/dL (6-20); CREATININE 1.2 mg/dL (0.5-0.9); EST GLOMERULAR FILTRATION RATE 60 mL/min; PLATELET ESTIMATE INCREASED (NORMAL)
[2018-07-01 14:18] LABS: TOTAL PROTEIN 7.7 g/dL (6.6-8.7)
[2018-07-01 14:26] LABS: ALBUMIN 4.6 g/dL (4.0-5.0); ALKALINE PHOSPHATASE 113 U/L (35-104); ALT/SGPT 30 U/L (<33); AST/SGOT 16 U/L (10.0-35.0); BILIRUBIN,DIRECT < 0.2 mg/dL (0-0.3)
[2018-07-01 14:33] LABS: GLUCOSE,RANDOM 719 mg/dL (74-109)
[2018-07-01] MEDS: INSULIN REGULAR, HUMAN 100 UNIT in 0.9 % SODIUM CHLORIDE 100ML 100 ML IV SCH ×2 (14:41)
[2018-07-01] MEDS: HUMULIN R 100 UNIT/ML VIAL IV ONE (14:41)
[2018-07-01 15:03] LABS: URINE APPEARANCE CLEAR; URINE BILIRUBIN NEGATIVE (NEGATIVE); URINE BLOOD TRACE-I (NEGATIVE); URINE COLOR YELLOW; URINE GLUCOSE (UA) >=1000 mg/dL (NEGATIVE); URINE KETONE 160 mg/dL (NEGATIVE); URINE LEUKOCYTE ESTERASE NEGATIVE (NEGATIVE); URINE NITRITE NEGATIVE (NEGATIVE); URINE PROTEIN NEGATIVE (NEGATIVE); URINE UROBILINOGEN 0.2 E.U./dL (0.20 - 1.00)
[2018-07-01 15:08] LABS: HCG,QUALITATIVE URINE NEGATIVE (NEGATIVE); URINE RBC 0 - 2 (NONE SEEN); URINE WBC NONE SEEN (0-2/hpf)
== END 2018-07-01 15:39 | disposition short-term general hospital (02) ==
LOC: ER 13:30
DX: E10.10 Type 1 diabetes mellitus with ketoacidosis without coma (principal); R11.2 Nausea with vomiting, unspecified; Z79.4 Long term (current) use of insulin; Z87.891 Personal history of nicotine dependence
CPT/HCPCS: 99291 ×2; 96374; 96375; 96361; 82800; 80076; 80048; 36416; 81001; 82009; 82948; 81025; 85027; J2405; J1815; J7030

== ENCOUNTER 2018-08-23 19:59 | Emergency (ER) | payer MEDICAID ==
[2018-08-23] MEDS ORDERED: 0.9 % SODIUM CHLORIDE 1,000 ML BAG IV ONE ×3 (20:04→23:43)
--- NOTE | 2018-08-23 20:05 | Emergency Department Record ---
History of Present Illness - General Chief Complaint: General Stated Complaint: NOT FEELING GOOD Time Seen by Provider: 08/23/18 20:03 Source: Patient, Family, EMS Limitations: Altered mental status - History of Present Illness Initial Comments: Patient was brought by EMS after mother called 911 due to patient being ill for the past 2 days. Patient has a history of recent DKA hospitalization for unknown infection and was noncompliant. Patient is not giving an accurate history at this time. Mother at bedside is not understanding her daughter's medical problems and wants to have her sent to [facility] as she didn't understand anything they did at [facility]. Mom also states that her daughter has been this way the past two days. She called 911 yesterday but daughter had refused transport then. Tonight the daughter was also refusing to be transported by ambulance, but was convinced to be seen. Police arrived at scene to assist and insist she be transported to the hospital. She refused transport to a critical care hospital which was recommended to her, and insisted on coming to [facility]. - Related Data Allergies Allergy/AdvReac Type Severity Reaction Status Date / Time carrot Allergy PT UNSURE Verified 06/08/18 23:40 OF REACTION pineapple Allergy rash Verified 06/08/18 23:40 Review of Systems ROS unobtainable: Due to mental status Past Medical History - SOCIAL HISTORY Smoking Status: Former smoker Drug Use: None - RESPIRATORY Hx Respiratory Disorders: No - CARDIOVASCULAR Hx Cardio Disorders: Yes Hx Palpitations: Yes - NEURO Hx Neuro Disorders: No - GI Hx GI Disorders: No - Hx Genitourinary Disorders: No - ENDOCRINE Hx Endocrine Disorders: Yes Hx Diabetes: Yes (DM1) - MUSCULOSKELETAL Hx Musculoskeletal Disorders: No - PSYCH Hx Psych Problems: Yes Hx Anxiety: Yes Hx Depression: Yes (Major depressive disorder) - HEMATOLOGY/ONCOLOGY Hx Hematology/Oncology Disorders: No Family Medical History Hx Cancer: Grandparents Hx Diabetes: Father *Diabetes Comment: Type 1 Hx Heart Disease: Mother, Grandparents Hx HTN: Mother, Grandparents Physical Exam - General General Appearance: Cooperative, Severe distress (tachypneic, answers questions but unreliable answers, poor historian, uncooperative, repeatedly refuses catherization of quick cath.) - Head Head exam: Normal inspection - Eye Eye exam: Normal appearance, PERRL, EOMI. negative: Conjunctival injection Pupils: Normal accommodation - ENT ENT exam: Normal exam, Mucous membranes dry, Normal external ear exam, Normal orophraynx, TM's normal bilaterally Ear exam: Normal external inspection. negative: External canal tenderness Nasal Exam: Normal inspection. negative: Active bleeding, Discharge, Sinus tenderness Mouth exam: Normal external inspection, Tongue normal Teeth exam: Normal inspection. negative: Dental caries Throat exam: Normal inspection. negative: Tonsillar erythema, Tonsillar exudate - Neck Neck exam: Normal inspection, Full ROM. negative: Lymphadenopathy, Meningismus , Tenderness - Respiratory Respiratory exam: Normal lung sounds bilaterally, Respiratory distress ( tachypnea 44/minute lung sounds clear), Other (tachypnea). negative: Accessory muscle use, Chest wall tenderness - Cardiovascular Cardiovascular Exam: Normal rhythm, Normal heart sounds, Tachycardia - GI/Abdominal GI/Abdominal exam: Soft, Normal bowel sounds. negative: Distended, Rigid, Tenderness - Rectal Rectal exam: Deferred - exam: Deferred - Extremities Extremities exam: Normal inspection, Full ROM, Normal capillary refill. negative: Calf tenderness, Joint swelling, Pedal edema, Tenderness - Back Back exam: Reports: Normal inspection, Full ROM. Denies: Muscle spasm, Rash noted, Tenderness - Neurological Neurological exam: Alert, Normal gait, Oriented X3, Reflexes normal, Other ( moves extremities times 4 equally, uncooperative to detailed exam, no facial droop) - Psychiatric Psychiatric exam: Normal mood, Suicidal ideation (denies suicidal thoughts or actions) - Skin Skin exam: Dry, Intact, Normal color, Warm. negative: Petechiae, Rash Course - Reevaluation(s) Reevaluation #1: 08/23/18 23:03 Nearly 2 liters NS infused, vitals: 112 pulse, respiratory rate remains elevated , blood pressure 98 systolic, similar to blood pressures on old records. Awaiting critical care transfer to [facility] where mother is requesting her to be transferred. Discussed with Dr. Fitch ICU [facility] who requests silva scan and accepts patient in transfer. Repeat labs attempted without success. 08/23/18 23:47 08/24/18 01:57 Repeat labs attained, repeat blood sugar 318, silva scan reveals patchy diffuse infiltrates, limited by patient motion. Patient transferred prior to report results. Rocephin 2 gm given, and vancomycin 1 gm infusing on transfer with third liter NS infusing. Pulse remains in the one hundred teens. Blood pressure 96 systolic. Mother informed of transfer to ICU at [facility]. 08/24/18 01:59 Reevaluation #2: Patient continues to protest any catheterization, refuses a quick cath. Taken to CT to scan. 08/23/18 23:46 Reevaluation #3: 08/24/18 02:02 Charts from [facility] reviewed and and coies sent with patient. Prior WBC then was 69 thousand, other labs reviewed from old record. Patient has been afebrile this visit. D50, bicarb and insulin given for elevated potassium of 6.7 with improvement on repeat labs drawn prior to transport. 08/24/18 02:05 Medical Decision Making - Management Options MDM Management: Additional Work-up Planned (e.g. ADM/Transfer/OP Study) ( Transfer to [facility] ICU.) - Data Complexity MDM Data: Labs Ordered and/or Reviewed, X-Ray Ordered and/or Reviewed (Panscan of Head, Chest, Abdomen and Pelvis: Patchy infiltrates lmited by motion of patient.), EKG Ordered and/or Reviewed - Lab Data Result diagrams: 08/24/18 00:40 08/24/18 00:40 - EKG Data -: EKG Interpreted by Me (Sinus tach, peaked T waves, NO acute changes or ST elevation.) Disposition Disposition: Transfer ([facility] ICU) Clinical Impression: Acidosis Sepsis Qualifiers: Sepsis type: sepsis due to unspecified organism Qualified Code(s): A41.9 - Sepsis, unspecified organism Diabetic acidosis Qualifiers: Diabetes mellitus type: type 1 Diabetes mellitus complication detail: without coma Qualified Code(s): E10.10 - Type 1 diabetes mellitus with ketoacidosis without coma Type 1 diabetes Qualifiers: Diabetes mellitus complication status: with unspecified complications Qualified Code(s): E10.8 - Type 1 diabetes mellitus with unspecified complications Disposition: Acute Care Hospital Transfer Transfer To: [facility] ICU Reason For Transfer: Critical illness Accepting Physician: Dr. Fitch Time Discussed w/Accepting Physician: 23:52 Condition: (5) Critical Forms: Patient Portal Access Quality - Quality Measures Quality Measures: N/A - Blood Pressure Screening Does Patient Have Any of the Following: No Blood Pressure Classification: Normal BP Reading Systolic Measurement: 102 Diastolic Measurement: 37 Screening for High Blood Pressure: < Normal BP, F/U Not Required > [G8783]
[2018-08-23 20:18] LABS: BASO % 0.2 % (0-6); HEMATOCRIT 33.7 % (35.0-47.0); HEMOGLOBIN 10.4 gm/dl (11.6-16.0); LYMPH % 3.7 % (16-45); MEAN CELL VOLUME 82.4 fl (81-97); MEAN CORPUSCULAR HEMOGLOBIN 25.4 pg (27-33); MEAN CORPUSCULAR HGB CONC 30.9 g/dl (32-36); MEAN PLATELET VOLUME 10.8 fl (7.4-10.4); MONO % 10.8 % (0-9); PLATELET COUNT 550 K/uL (130-400); RED BLOOD COUNT 4.09 M/uL (3.80-5.40); RED CELL DISTRIBUTION WIDTH 14.3 % (11.5-14.5)
[2018-08-23 20:22] LABS: WHITE BLOOD COUNT W/O DIFF 39.9 K/uL (4.2-12.2)
[2018-08-23] MEDS ORDERED: ONDANSETRON HCL IV 4 MG/2 ML VIAL IVP ONE (20:23)
[2018-08-23 20:43] LABS: ALB/GLOB RATIO 1.4 (1.1-1.8); ALBUMIN 4.2 g/dL (4.0-5.0); BILIRUBIN,TOTAL 0.4 mg/dL (0.2-1.0); CREATININE 2.9 mg/dL (0.5-0.9); TOTAL PROTEIN 7.3 g/dL (6.6-8.7)
[2018-08-23 21:03] LABS: ANISOCYTOSIS 1+; PLATELET ESTIMATE INCREASED (NORMAL)
[2018-08-23 21:10] LABS: ARTERIAL BLOOD GAS pH 7.01 (7.35-7.45)
[2018-08-23 21:11] LABS: ARTERIAL BLD GAS O2 SATURATION 98.5 % (95-98); ARTERIAL BLOOD GAS BASE EXCESS -27.7 mmol/L (-2 - 3); ARTERIAL BLOOD GAS HCO3 1.9 mmol/L (18-23); O2 HEMOGLOBIN 96.1 % vol (94-99)
[2018-08-23 21:12] LABS: METHEMOGLOBIN 1.4 % (0.0-1.5); TOTAL HEMOGLOBIN 9.4 g/dl (11.6-16)
[2018-08-23 21:13] LABS: ALLEN TEST PASS
[2018-08-23] MEDS ORDERED: SODIUM BICARBONATE 50MEQ SYRINGE IVP ONE (22:50)
[2018-08-23] MEDS ORDERED: DEXTROSE 50 % IVP 50 ML DISP.SYRIN IVP ONE (22:51)
[2018-08-23] MEDS ORDERED: HUMULIN R 100 UNIT/ML VIAL IV ONE (22:52)
[2018-08-23] MEDS ORDERED: CEFTRIAXONE SODIUM 2 GM in 0.9 % SODIUM CHLORIDE 100ML 100 ML IVPB ONE (22:57)
[2018-08-23] MEDS ORDERED: VANCOMYCIN HCL 1,000 MG in 0.9 % SODIUM CHLORIDE 250ML 250 ML IVPB ONE (23:31)
[2018-08-24 00:47] LABS: BASO % 0.1 % (0-6); HEMATOCRIT 28.8 % (35.0-47.0); HEMOGLOBIN 8.9 gm/dl (11.6-16.0); LYMPH % 3.5 % (16-45); MEAN CELL VOLUME 82.8 fl (81-97); MEAN CORPUSCULAR HGB CONC 30.9 g/dl (32-36); MEAN PLATELET VOLUME 10.8 fl (7.4-10.4); MONO % 9.1 % (0-9); PLATELET COUNT 374 K/uL (130-400); RED BLOOD COUNT 3.48 M/uL (3.80-5.40); RED CELL DISTRIBUTION WIDTH 14.2 % (11.5-14.5)
[2018-08-24 00:50] LABS: MEAN CORPUSCULAR HEMOGLOBIN 25.5 pg (27-33); WHITE BLOOD COUNT W/O DIFF 28.2 K/uL (4.2-12.2)
[2018-08-24 00:55] LABS: BILIRUBIN,TOTAL 0.2 mg/dL (0.2-1.0); CREATININE 2.3 mg/dL (0.5-0.9)
[2018-08-24 00:56] LABS: TOTAL PROTEIN 6.1 g/dL (6.6-8.7)
[2018-08-24 01:01] LABS: ALB/GLOB RATIO 1.3 (1.1-1.8); ALBUMIN 3.4 g/dL (4.0-5.0)
[2018-08-24 01:13] LABS: ANISOCYTOSIS 1+; PLATELET ESTIMATE NORMAL (NORMAL)
--- NOTE | 2018-08-24 13:41 | CT SCAN REPORT ---
EXAM: NONCONTRAST CT OF THE HEAD HISTORY: HEADACHE, NAUSEA, WEAKNESS. TECHNIQUE: Noncontrast CT of the head was obtained. Comparison: Noncontrast CT head 02/13/18. FINDINGS: No midline shift, mass effect, or abnormal intra or extraaxial fluid collection. No cerebral edema, focal mass or intracranial hemorrhage is detected. The ibarra white interface appears preserved. The ventricle sizes appear stable from 02/13/18 comparison. The basal cisterns appear patent. No evidence of displaced calvarial fracture. The visualized paranasal sinuses and mastoid air cells are clear. IMPRESSION: NO ACUTE INTRACRANIAL FINDINGS. JOB NUMBER: [id number] MTDD
--- NOTE | 2018-08-24 13:47 | CT SCAN REPORT ---
EXAM: NONCONTRAST CT OF THE CHEST HISTORY: SEPSIS, NAUSEA, WEAKNESS, CONGESTION. TECHNIQUE: Noncontrast CT of the chest was obtained. Comparison: Chest radiograph 04/26/16. FINDINGS: Patient motion artifact degrades examination. Foci of gas noted within the upper, mid, and lower mediastinum. No significant pericardial fluid collection. The thoracic aorta is or normal course and caliber. No appreciable mediastinal, hilar or axillary lymphadenopathy. Patchy opacities are noted in the anterior right upper lobe, lingula, right middle lobe, and medial aspects of both lower lobes. No pleural effusion or pneumothorax. No definite acute osseous abnormalities are detected, evaluation limited by motion artifact. IMPRESSION: 1. MOTION DEGRADED EXAMINATION. 2. MULTIFOCAL PNEUMONIA. 3. PNEUMOMEDIASTINUM. 4. A PRELIMINARY REPORT DESCRIBED THE MULTIFOCAL PNEUMONIA WAS PROVIDED BY THE [facility]. ADDITIONAL FINDINGS WERE REPORTED BY TELEPHONE TO DR. CHAPA BY DR. RENO AT APPROXIMATELY 8:00 A.M. ON 08/24/18. JOB NUMBER: [id number] MTDD
--- NOTE | 2018-08-24 14:19 | CT SCAN REPORT ---
EXAM: NONCONTRAST CT OF THE ABDOMEN AND PELVIS HISTORY: SEPSIS, HEADACHE, NAUSEA, WEAKNESS, CONGESTION. TECHNIQUE: Noncontrast CT of the abdomen and pelvis was obtained. Comparison: CT of the abdomen and pelvis 03/11/17. FINDINGS: Bilateral multifocal pulmonary opacities, described on separate CT chest report. Unremarkable noncontrast CT appearance of the liver, gallbladder, spleen, adrenal glands, and pancreas. The adrenal glands are unremarkable. No hydronephrosis. No calculi detected. The abdominal aorta is of normal course and caliber. No retroperitoneal lymphadenopathy is detected. Note is made of pneumomediastinum in the visualized lower mediastinum. No focal colonic thickening or inflammatory changes. The small bowel is nondilated. No free air or free fluid seen in the abdomen or pelvis. Unremarkable appearance of the urinary bladder. No acute osseous findings. Patient motion limits evaluation. IMPRESSION: 1. NO ACUTE INTRAABDOMINAL OR INTRAPELVIC FINDINGS. 2. MULTIFOCAL PNEUMONIA. 3. PNEUMOMEDIASTINUM. JOB NUMBER: [id number] MTDD
== END 2018-08-24 00:51 | disposition short-term general hospital (02) ==
LOC: ER 19:59
DX: A41.9 Sepsis, unspecified organism (principal); E10.10 Type 1 diabetes mellitus with ketoacidosis without coma; I95.9 Hypotension, unspecified; R00.0 Tachycardia, unspecified; R41.82 Altered mental status, unspecified; R53.1 Weakness; R11.0 Nausea; Z79.4 Long term (current) use of insulin; Z87.891 Personal history of nicotine dependence
CPT/HCPCS: 36416; 36600; 70450; 71250; 74176; 80053; 80320; 82009; 82375; 82800; 82803; 82948; 83605; 85027; 93005; 93010; 96361; 96365; 96366; 96367; 96375; 99291; J2405; J7050